=== PATIENT | female | born 1995 | race Caucasian/White ===

== ENCOUNTER 2018-06-26 21:48 | Emergency (ER) | payer SELFPAY ==
[2018-06-26] MEDS ORDERED: ONDANSETRON HCL INJ/PF 4 MG/2 ML SDV IV ONE (23:58)
--- NOTE | 2018-06-27 | ER Document Report ---
ED Medical Screen (RME) - General Chief Complaint: Abdominal Pain Stated Complaint: ABDOMINAL PAIN Time Seen by Provider: 06/26/18 23:57 Notes: Patient is a 22-year-old female presents to the emergency department complaining of general epigastric and left upper quadrant pain for the last 3 days. Patient states she is extremely nauseated and has vomited x2. Patient denies any diarrhea. Patient states her last bowel movement was today and it was very hard. Patient states after that bowel movement she did note bright red blood in the toilet and has had anus pain. Patient states last menstrual period was May 18 Past medical history: None Medications: None Allergies: Penicillin, latex GENERAL: Alert, interacts well. No acute distress. ABDOMEN: Soft, generalized epigastric and left upper quadrant pain. Non- distended. Bowel sounds present in all 4 quadrants. No McBurney's point tenderness, no Salgado sign noted. I have greeted and performed a rapid initial assessment of this patient. A comprehensive ED assessment and evaluation of the patient, analysis of test results and completion of the medical decision making process will be conducted by additional ED providers. TRAVEL OUTSIDE OF THE [place] IN LAST 30 DAYS: No - Related Data Allergies/Adverse Reactions: latex Allergy (Verified 06/26/18 21:50) Penicillins Allergy (Verified 06/26/18 21:50) Physical Exam - Vital signs Vitals: Temp Pulse Resp BP Pulse Ox 97.5 F 77 16 122/76 99 06/26/18 22:22 06/26/18 22:22 06/26/18 22:22 06/26/18 22:22 06/26/18 22:22 Course - Vital Signs Vital signs: Temp Pulse Resp BP Pulse Ox 97.5 F 77 16 122/76 99 06/26/18 22:22 06/26/18 22:22 06/26/18 22:22 06/26/18 22:22 06/26/18 22:22
[2018-06-27 00:30] LABS: ABSOLUTE BASOPHILS # (AUTO) 0.1 10^3/uL (0.0-0.2); ABSOLUTE EOSINOPHILS # (AUTO) 0.3 10^3/uL (0.0-0.6); ABSOLUTE LYMPHOCYTES (AUTO) 4.5 10^3/uL (0.5-4.7); ABSOLUTE MONOCYTES (AUTO) 0.8 10^3/uL (0.1-1.4); ABSOLUTE NEUT (AUTO) 8.8 10^3/uL (1.7-8.2); BASOPHILS % (AUTO) 0.7 % (0-2); EOSINOPHILS % (AUTO) 2.2 % (0-6); HEMATOCRIT 44.5 % (36.0-47.0); HEMOGLOBIN 14.9 g/dL (12.0-15.5); LYMPHOCYTES % (AUTO) 30.9 % (13-45); MEAN CORPUSCULAR HEMOGLOBIN 27.8 pg (27.0-33.4); MEAN CORPUSCULAR HGB CONC 33.5 g/dL (32.0-36.0); MEAN CORPUSCULAR VOLUME 83 fl (80-97); MONOCYTES % (AUTO) 5.3 % (3-13); PLATELET COUNT 325 10^3/uL (150-450); RED BLOOD COUNT 5.37 10^6/uL (3.72-5.28); RED CELL DISTRIBUTION WIDTH 14.1 % (11.5-14.0); SEGMENTED NEUTROPHILS % (AUTO) 60.9 % (42-78); TOTAL CELLS COUNTED % (AUTO) 100 %; WHITE BLOOD COUNT 14.5 10^3/uL (4.0-10.5)
[2018-06-27 00:47] LABS: ALANINE AMINOTRANSFERASE 22 U/L (9-52); ALBUMIN 4.4 g/dL (3.5-5.0); ALKALINE PHOSPHATASE 61 U/L (38-126); ANION GAP 7 (5-19); ASPARTATE AMINO TRANSFERASE 34 U/L (14-36); BILIRUBIN,DIRECT 0.2 mg/dL (0.0-0.4); BILIRUBIN,TOTAL 0.2 mg/dL (0.2-1.3); BLOOD UREA NITROGEN 10 mg/dL (7-20); CALCIUM 9.3 mg/dL (8.4-10.2); CARBON DIOXIDE 26 mmol/L (22-30); CHLORIDE 106 mmol/L (98-107); GLUCOSE 99 mg/dL (75-110); LIPASE 112.2 U/L (23-300); POTASSIUM 3.5 mmol/L (3.6-5.0); TOTAL PROTEIN 7.2 g/dL (6.3-8.2)
[2018-06-27 01:57] LABS: APPEARANCE,URINE SLIGHTLY-CLOUDY; BILIRUBIN,URINE NEGATIVE (NEGATIVE); COLOR,URINE YELLOW; GLUCOSE, URINE NEGATIVE (NEGATIVE); KETONES,URINE NEGATIVE (NEGATIVE); LEUKOCYTE ESTERASE,URINE TRACE (NEGATIVE); NITRITE,URINE NEGATIVE (NEGATIVE); PROTEIN,URINE NEGATIVE (NEGATIVE); URINE SPECIFIC GRAVITY 1.025
[2018-06-27] MEDS ORDERED: METOCLOPRAMIDE HCL ORAL SOLN 10 MG/10 ML UDCUP PO ONE (01:59)
[2018-06-27] MEDS ORDERED: FAMOTIDINE 20 MG TABLET PO ONE (01:59)
[2018-06-27] MEDS ORDERED: LIDOCAINE 2% VISCOUS SOLN 20 ML UDCUP PO ONE (01:59)
[2018-06-27] MEDS ORDERED: MAG HYDROX/AL HYDROX/SIMETH SUSP 30 ML UDCUP PO ONE (01:59)
[2018-06-27] MEDS ORDERED: SUCRALFATE 1 GM TABLET PO ONE (01:59)
--- NOTE | 2018-06-27 02:01 | ER Document Report ---
ED General - General Chief Complaint: Abdominal Pain Stated Complaint: ABDOMINAL PAIN Time Seen by Provider: 06/26/18 23:57 Notes: Patient is a 22-year-old female without chronic medical problems, prior surgical history of a cholecystectomy 7 years ago who presents with complaints of 3 days of epigastric abdominal pain intermittently radiating into her left chest. Patient describes her abdominal pain as being aching, throbbing, constant pain to the upper abdomen. States the pain worsens this pain. States that the pain became much more severe tonight after eating spaghetti with red sauce. She has had 2 episodes of vomiting and remains nauseous. Has not trying to improve her symptoms. No history of similar symptoms in the past. Patient also reports that she has been straining to have bowel movements, passes only firm stools marco t are nonbloody but that she has blood when wiping. She has not seen her general physician regarding today's concerns. TRAVEL OUTSIDE OF THE [place] IN LAST 30 DAYS: No - Related Data Allergies/Adverse Reactions: latex Allergy (Verified 06/26/18 21:50) Penicillins Allergy (Verified 06/26/18 21:50) Past Medical History - General Information source: Patient - Social History Smoking Status: Current Every Day Smoker Chew tobacco use (# tins/day): No Frequency of alcohol use: Occasional Drug Abuse: None Lives with: Friend Family History: Reviewed & Not Pertinent Patient has suicidal ideation: No Patient has homicidal ideation: No Renal/ Medical History: Denies: Hx Peritoneal Dialysis Review of Systems - Review of Systems Notes: Constitutional: Negative for fever. HENT: Negative for sore throat. Eyes: Negative for visual changes. Cardiovascular: Negative for chest pain. Respiratory: Negative for shortness of breath. Gastrointestinal: Positive for abdominal pain and vomiting. Genitourinary: Negative for dysuria. Musculoskeletal: Negative for back pain. Skin: Negative for rash. Neurological: Negative for headaches, weakness or numbness. 10 point ROS negative except as marked above and in HPI. Physical Exam - Vital signs Vitals: Temp Pulse Resp BP Pulse Ox 97.5 F 77 16 122/76 99 06/26/18 22:22 06/26/18 22:22 06/26/18 22:22 06/26/18 22:22 06/26/18 22:22 Interpretation: Normal Notes: PHYSICAL EXAMINATION: GENERAL: Well-appearing, well-nourished and in no acute distress. HEAD: Atraumatic, normocephalic. EYES: Pupils equal round and reactive to light, extraocular movements intact, sclera anicteric, conjunctiva are normal. ENT: nares patent, oropharynx clear without exudates. Moderately dry mucous membranes. NECK: Normal range of motion, supple without lymphadenopathy LUNGS: Breath sounds clear to auscultation bilaterally and equal. No wheezes rales or rhonchi. HEART: Regular rate and rhythm without murmurs ABDOMEN: Soft, epigastric abdominal pain on palpation but no other areas of localized abdominal tenderness, normoactive bowel sounds. No guarding, no rebound. No masses appreciated. EXTREMITIES: Normal range of motion, no pitting or edema. No cyanosis. NEUROLOGICAL: No focal neurological deficits. Moves all extremities spontaneously and on command. PSYCH: Normal mood, normal affect. SKIN: Warm, Dry, normal turgor, no rashes or lesions noted. Course - Re-evaluation Re-evalutation: 06/27/18 02:00 Patient presents with epigastric abdominal pain with associated reflux symptoms most consistent with likely gastritis. Patient has no focal abdominal tenderness on examination. Patient is status post cholecystectomy 7 years ago removing biliary pathology from differential. Lipase is normal. No LFT changes. Based on history and exam, I do not suspect ACS, pulmonary embolus, SBO, mesenteric ischemia, acute pancreatitis, biliary pathology, or an abdominal aortic dissection. Patient has had improvement of symptoms here with a GI cocktail. In regards to the patient report of rectal bleeding: Does report that she has been straining heavily to have bowel movements, having very constipated bowel movements and this is likely hemorrhoidal in origin. Hemoglobin within normal limits. 2 view abdomen without any acute findings. At this time will discharge with return precautions and follow-up recommendations. Verbal discharge instructions given a the bedside and opportunity for questions given. Medication warnings reviewed. Patient is in agreement with this plan and has verbalized understanding of return precautions and the need for primary care follow-up in the next 24-72 hours. - Vital Signs Vital signs: Temp Pulse Resp BP Pulse Ox 97.8 F 59 L 18 115/64 100 06/27/18 03:12 06/27/18 03:12 06/27/18 03:12 06/27/18 03:12 06/27/18 03:12 - Laboratory Result Diagrams: 06/27/18 00:19 06/27/18 00:19 Laboratory results interpreted by me: 06/27/18 06/27/18 06/27/18 00: 00:19 01:29 WBC 14.5 H RBC 5.37 H RDW 14.1 H Absolute Neutrophils 8.8 H Potassium 3.5 L Urine Urobilinogen 2.0 H Ur Leukocyte Esterase TRACE H - Diagnostic Test Radiology reviewed: Image reviewed, Reports reviewed Radiology results interpreted by me: 06/27/18 03:31 2 view abdomen: No significant colonic stool burden, no evidence of free air or obstruction - EKG Interpretation by Me Additional EKG results interpreted by me: 06/27/18 03:31 Sinus rhythm, rate 59. No ST elevations or depressions. QTC 444. Discharge - Discharge Clinical Impression: Epigastric abdominal pain, Gastritis/duodenitis Nausea and vomiting Qualifiers: Vomiting type: unspecified Vomiting Intractability: non-intractable Qualified Code(s): R11.2 - Nausea with vomiting, unspecified Condition: Good Disposition: HOME, SELF-CARE Additional Instructions: Your symptoms appear to be most consistent with stomach or upper intestinal irritation. Please begin taking famotidine 40 mg in the morning and 40 mg at night. Please take Carafate before meals. You may also take medicine such as Pepto-Bismol or Tums to assist with your pain. Please return to emergency department immediately if you have worsening of your pain, shortness of breath, vomiting, become unable to exert yourself due to pain or difficulty breathing, you pass out, or have any pain that radiates into your arms, jaw, or back. Please also return if you have any additional symptoms that are concerning to you. As we have discussed, the most important thing is lifestyle changes. You need to avoid smoking, sodas, tea, coffee, alcohol, spicy foods, and acidic foods such as citrus fruits, tomato based products, berries, and most fruit juices. Prescriptions: Famotidine 40 mg PO BID #60 tablet Sucralfate [Carafate 1 gm Tablet] 1 gm PO ACHS #120 tablet
--- NOTE | 2018-06-27 02:38 | RADIOLOGY REPORT (SQ) ---
EXAM DESCRIPTION: XR ABDOMEN 2 VIEWS SUPINE ERECT COMPLETED DATE/TME: 06/27/2018 01:26 CLINICAL HISTORY: 22 years Female, abdominal pain COMPARISON: None. NUMBER OF VIEWS/TECHNIQUE: 1 FINDINGS: Intestinal gas pattern is within normal limits. Paucity of bowel gas. No suspicious calcification. Grossly intact skeletal structures. Right upper abdominal clips. Pelvic clip. Mild scoliotic curvature. IMPRESSION: No acute findings.
[2018-06-27 03:12] VITALS: BP 115/64
--- NOTE | 2018-06-27 18:31 | EKG REPORT ---
SEVERITY:- NORMAL ECG - SINUS RHYTHM : Confirmed by: Ishmael Melissa 27-Jun-2018 18:30:40
== END 2018-06-27 03:13 | disposition home or self-care (01) ==
LOC: ER 21:48
DX: K29.70 Gastritis, unspecified, without bleeding (principal); R10.13 Epigastric pain; F17.200 Nicotine dependence, unspecified, uncomplicated; Z91.040 Latex allergy status; Z88.0 Allergy status to penicillin; Z90.49 Acquired absence of other specified parts of digestive tract
CPT/HCPCS: 93005; 96374; 99284; 36415; 83690; 85025; 81025; 80053; 81001; 74019; 93010; J3490; J2405

== ENCOUNTER 2018-10-01 22:14 | Emergency (ER) | payer SELFPAY ==
[2018-10-01 22:24] VITALS: BP 122/78
[2018-10-02] MEDS ORDERED: CYCLOBENZAPRINE HCL 10 MG TABLET PO ONE (01:24)
[2018-10-02] MEDS ORDERED: IBUPROFEN 800 MG TABLET PO ONE (01:24)
[2018-10-02] MEDS ORDERED: HYDROCODONE/ACETAMINOPHEN 5-325 MG (6 TAB/ER DISP) PO PRN (01:24)
--- NOTE | 2018-10-02 01:30 | ER Document Report ---
ED General - General Chief Complaint: Back Injury Stated Complaint: BACK PAIN Time Seen by Provider: 10/02/18 01:24 Mode of Arrival: Ambulatory Information source: Patient TRAVEL OUTSIDE OF THE [place] IN LAST 30 DAYS: No - HPI Notes: Patient is a 23-year-old white female presents emergency department with report that 30 hours ago she was moving some furniture and twisted and felt a pain to her left lower back. She continued to move furniture but the back pain progressed. She denies any numbness, paresthesia, incontinence. She reports no focal weakness down the legs. She denies any abdominal pain or dysuria or frequency or hematuria. Patient reports there is no concern for being and her menstrual cycle is on time. The patient denies any other musculoskeletal complaint or injury. No neck pain or upper back pain. - Related Data Allergies/Adverse Reactions: latex Allergy (Verified 06/26/18 21:50) Penicillins Allergy (Verified 06/26/18 21:50) Past Medical History - General Information source: Patient - Social History Smoking Status: Current Every Day Smoker Frequency of alcohol use: None Drug Abuse: None Lives with: Family Family History: Reviewed & Not Pertinent Renal/ Medical History: Denies: Hx Peritoneal Dialysis Review of Systems - Review of Systems -: Yes All other systems reviewed and negative Physical Exam - Vital signs Vitals: Temp Pulse Resp BP Pulse Ox 97.6 F 74 20 122/78 100 10/01/18 22:22 10/01/18 22:22 10/01/18 22:22 10/01/18 22:22 10/01/18 22:22 - Notes Notes: PHYSICAL EXAMINATION: GENERAL: Well-appearing, well-nourished and in no acute distress. HEAD: Atraumatic, normocephalic. EYES conjunctiva are normal. ENT Moist mucous membranes. NECK: Normal range of motion, supple without lymphadenopathy LUNGS: Breath sounds clear to auscultation bilaterally and equal. No wheezes rales or rhonchi. HEART: Regular rate and rhythm without murmurs ABDOMEN: Soft, nontender, nondistended abdomen. No guarding, no rebound. No masses appreciated. Female : deferred Musculoskeletal: Normal range of motion, no pitting or edema. No cyanosis. Pain appreciated paraspinal left lumbar region. No CVA tenderness. No crepitance or bony deformity or erythema. NEUROLOGICAL: Cranial nerves grossly intact. Normal speech, normal gait. Normal sensory, motor exams. Normal reflexes. No saddle anesthesia. PSYCH: Normal mood, normal affect. SKIN: Warm, Dry, normal turgor, no rashes or lesions noted. Course - Re-evaluation Re-evalutation: 10/02/18 01:28 No clinical suggestion for cauda equina syndrome or suggestion for fracture or acute neurologic compromise. - Vital Signs Vital signs: Temp Pulse Resp BP Pulse Ox 97.6 F 74 20 122/78 100 10/01/18 22:22 10/01/18 22:22 10/01/18 22:22 10/01/18 22:22 10/01/18 22:22 Discharge - Discharge Clinical Impression: Back strain Qualifiers: Encounter type: initial encounter Qualified Code(s): S39.012A - Strain of muscle, fascia and tendon of lower back, initial encounter Condition: Stable Disposition: HOME, SELF-CARE Instructions: Low Back Pain ([facility]) Additional Instructions: No heavy lifting. Prescriptions: Ibuprofen [Ibu] 800 mg PO Q8HP PRN #30 tablet PRN Reason: Cyclobenzaprine HCl [Flexeril 10 mg Tablet] 10 mg PO TIDP PRN #20 tab PRN Reason: Forms: Return to Work
== END 2018-10-02 02:14 | disposition home or self-care (01) ==
LOC: ER 22:14
DX: S39.012A Strain of muscle, fascia and tendon of lower back, initial encounter (principal); X50.1XXA Overexertion from prolonged static or awkward postures, initial encounter; Y93.89 Activity, other specified; Y99.0 Civilian activity done for income or pay; F17.200 Nicotine dependence, unspecified, uncomplicated; Z91.040 Latex allergy status; Z88.0 Allergy status to penicillin
CPT/HCPCS: 99283

== ENCOUNTER 2018-11-03 07:42 | Emergency (ER) | payer BC ==
[2018-11-03] MEDS ORDERED: DIPHENHYDRAMINE HCL 50 MG/ML VIAL IV ONE (08:56)
[2018-11-03] MEDS ORDERED: NORMAL SALINE 1000 ML 1,000 ML IV ONE (08:56)
[2018-11-03] MEDS ORDERED: KETOROLAC TROMETHAMINE INJ/PF 30 MG/1 ML SDV IV ONE (08:56)
[2018-11-03] MEDS ORDERED: METOCLOPRAMIDE HCL INJ/PF 10 MG/2 ML SDV IV ONE (08:56)
[2018-11-03 09:40] LABS: ABSOLUTE EOSINOPHILS # (AUTO) 0.4 10^3/uL (0.0-0.6); ABSOLUTE LYMPHOCYTES (AUTO) 2.7 10^3/uL (0.5-4.7); ABSOLUTE MONOCYTES (AUTO) 0.4 10^3/uL (0.1-1.4); ABSOLUTE NEUT (AUTO) 5.7 10^3/uL (1.7-8.2); BASOPHILS % (AUTO) 0.4 % (0-2); EOSINOPHILS % (AUTO) 3.9 % (0-6); HEMATOCRIT 41.9 % (36.0-47.0); HEMOGLOBIN 13.8 g/dL (12.0-15.5); LYMPHOCYTES % (AUTO) 29.5 % (13-45); MEAN CORPUSCULAR HEMOGLOBIN 27.8 pg (27.0-33.4); MEAN CORPUSCULAR VOLUME 84 fl (80-97); MONOCYTES % (AUTO) 4.2 % (3-13); PLATELET COUNT 287 10^3/uL (150-450); RED BLOOD COUNT 4.98 10^6/uL (3.72-5.28); RED CELL DISTRIBUTION WIDTH 14.6 % (11.5-14.0); TOTAL CELLS COUNTED % (AUTO) 100 %; WHITE BLOOD COUNT 9.1 10^3/uL (4.0-10.5)
[2018-11-03 10:14] LABS: ALANINE AMINOTRANSFERASE 27 U/L (9-52); ALBUMIN 3.7 g/dL (3.5-5.0); ALKALINE PHOSPHATASE 57 U/L (38-126); ANION GAP 8 (5-19); ASPARTATE AMINO TRANSFERASE 15 U/L (14-36); BILIRUBIN,DIRECT 0.2 mg/dL (0.0-0.4); BILIRUBIN,TOTAL 0.3 mg/dL (0.2-1.3); BLOOD UREA NITROGEN 10 mg/dL (7-20); CALCIUM 9.2 mg/dL (8.4-10.2); CARBON DIOXIDE 26 mmol/L (22-30); CHLORIDE 107 mmol/L (98-107); GLUCOSE 88 mg/dL (75-110); POTASSIUM 4.7 mmol/L (3.6-5.0); SODIUM 141.4 mmol/L (137-145); TOTAL PROTEIN 6.6 g/dL (6.3-8.2)
[2018-11-03 10:16] LABS: APPEARANCE,URINE CLEAR; BILIRUBIN,URINE NEGATIVE (NEGATIVE); COLOR,URINE YELLOW; GLUCOSE, URINE NEGATIVE (NEGATIVE); KETONES,URINE NEGATIVE (NEGATIVE); LEUKOCYTE ESTERASE,URINE NEGATIVE (NEGATIVE); NITRITE,URINE NEGATIVE (NEGATIVE); PROTEIN,URINE NEGATIVE (NEGATIVE); URINE SPECIFIC GRAVITY 1.018; UROBILINOGEN,URINE NEGATIVE mg/dL (<2.0)
[2018-11-03] MEDS ORDERED: DEXAMETHASONE SOD PHOS INJ 10 MG/1 ML VIAL IV ONE (11:37)
[2018-11-03 12:06] VITALS: BP 130/80
--- NOTE | 2018-11-03 12:10 | ER Document Report ---
ED General - General Chief Complaint: Headache >24 hrs old Stated Complaint: HEADACHE Time Seen by Provider: 11/03/18 08:44 TRAVEL OUTSIDE OF THE [place] IN LAST 30 DAYS: No - HPI Notes: Patient is a 23-year-old female presents emergency department for evaluation of a headache. She states is been going on for 3 days. She was resting on the couch watching television when it started. It was gradual in onset. She states her whole head hurts. She has increased pain with bright lights and loud noises. Nothing seems to make it better. She has had 4 episodes of emesis in the last 24 hours. She states the last one was streaked with blood. No fever chills. No sore throat. No ear pain. No rashes. She denies any recent head injuries. Difficulty seeing, speaking, swallowing. - Related Data Allergies/Adverse Reactions: latex Allergy (Verified 11/03/18 07:46) Penicillins Allergy (Verified 11/03/18 07:46) Past Medical History - General Information source: Patient - Social History Smoking Status: Current Every Day Smoker Chew tobacco use (# tins/day): No Frequency of alcohol use: None Drug Abuse: None Family History: Reviewed & Not Pertinent Patient has suicidal ideation: No Patient has homicidal ideation: No Renal/ Medical History: Denies: Hx Peritoneal Dialysis Review of Systems - Review of Systems Constitutional: No symptoms reported EENT: No symptoms reported Cardiovascular: No symptoms reported Respiratory: No symptoms reported Gastrointestinal: No symptoms reported Genitourinary: No symptoms reported Musculoskeletal: No symptoms reported Skin: No symptoms reported Neurological/Psychological: See HPI Physical Exam - Vital signs Vitals: Temp Pulse Resp BP Pulse Ox 97.9 F 68 18 128/79 H 97 11/03/18 07:52 11/03/18 07:52 11/03/18 07:52 11/03/18 07:52 11/03/18 07:52 - Notes Notes: Vital signs reviewed, please refer to chart. Head is normocephalic, atraumatic. Pupils equal round, reactive to light. Oral mucosa is moist, pharynx is without erythema or exudate. Neck is supple without meningismus. Heart is regular rate and rhythm. Lungs are clear to auscultation bilaterally. Abdomen is soft, nontender, normoactive bowel sounds throughout. Extremities without cyanosis, clubbing. Posterior calves are nontender. Peripheral pulses are equal. Skin is warm and dry. Patient is awake, alert, oriented x3. Cranial nerves II - XII are grossly intact without focal neurological deficits. Strength is plus 5 out of 5 bilateral lower extremities. Sensation is intact. Reflexes symmetrical. Intact [id number], rapid altering movements, [id number]. Course - Re-evaluation Re-evalutation: 11/03/18 12:07 Patient presents emergency department for evaluation. She states her pain is a 10 out of 10, but she sitting there comfortably. She is sleeping intermittently throughout the course of her stay. Her pain did improve somewhat. Her pain was gradual in onset. She has no signs of meningitis. She has no neurological deficits. She is feeling somewhat improved. I will send her home with some Fioricet. She is to follow-up with primary care, return to the emergency department with worsening or new concerning symptoms. - Vital Signs Vital signs: Temp Pulse Resp BP Pulse Ox 97.9 F 68 15 128/81 H 100 11/03/18 07:52 11/03/18 07:52 11/03/18 11:01 11/03/18 11:01 11/03/18 11:01 - Laboratory Result Diagrams: 11/03/18 09:15 11/03/18 09:15 Laboratory results interpreted by me: 11/03/18 11/03/18 08:50 09:15 RDW 14.6 H Urine Blood SMALL H Discharge - Discharge Clinical Impression: Headache Condition: Stable Disposition: HOME, SELF-CARE Instructions: Headache ([facility]) Additional Instructions: Take medication as prescribed. Rest. Follow-up with your primary care physician this week. Return to the emergency department with worsening or concerning symptoms. Referrals: JOSE EDUARDO MOODY MD [ACTIVE STAFF] - Follow up as needed
== END 2018-11-03 12:52 | disposition home or self-care (01) ==
LOC: ER 07:42
DX: R51 Headache (principal); F17.200 Nicotine dependence, unspecified, uncomplicated; Z91.040 Latex allergy status; Z88.0 Allergy status to penicillin
CPT/HCPCS: 99284; 96361; 96374; 96375; 36415; 85025; 81025; 80053; 81001; J1200; J1885; J2765; J7030; J1100

== ENCOUNTER 2018-11-14 14:31 | Emergency (ER) | payer BC ==
[2018-11-14 14:42] VITALS: BP 131/79
[2018-11-14] MEDS ORDERED: NORMAL SALINE 1000 ML 1,000 ML IV ONE (15:07)
[2018-11-14] MEDS ORDERED: METOCLOPRAMIDE HCL INJ/PF 10 MG/2 ML SDV IV ONE (15:07)
[2018-11-14] MEDS ORDERED: KETOROLAC TROMETHAMINE INJ/PF 30 MG/1 ML SDV IV ONE (15:07)
[2018-11-14] MEDS ORDERED: DIPHENHYDRAMINE HCL 50 MG/ML VIAL IV ONE (15:07)
--- NOTE | 2018-11-14 15:11 | ER Document Report ---
ED Medical Screen (RME) - General Chief Complaint: Headache Stated Complaint: MIGRAINE Time Seen by Provider: 11/14/18 15:04 Notes: Patient is a 23-year-old female presents to the emergency department for generalized frontal headache. States it was gradual in onset despite treatments at home has not been resolved. Patient states she was at this facility a few weeks ago for same. States she was treated as a migraine headache and told to ban toro-up with neurology. States she has not followed up with neurology. States this headache feels similar to the headache she had a couple weeks ago. Patient also complaining of photophobia and nausea. Patient's denying any injury, fever, nuchal rigidity. GENERAL: Alert, interacts well. NECK: Full range of motion. Supple. Trachea midline. No nuchal rigidity noted I have greeted and performed a rapid initial assessment of this patient. A comprehensive ED assessment and evaluation of the patient, analysis of test results and completion of the medical decision making process will be conducted by additional ED providers. This medical record was dictated with voice recognizing software. There may be grammatical, syntax errors that are unintended. TRAVEL OUTSIDE OF THE [place] IN LAST 30 DAYS: No - Related Data Allergies/Adverse Reactions: latex Allergy (Verified 11/14/18 14:31) Penicillins Allergy (Verified 11/14/18 14:31) Past Medical History - Social History Chew tobacco use (# tins/day): No Frequency of alcohol use: Occasional Drug Abuse: Marijuana Renal/ Medical History: Denies: Hx Peritoneal Dialysis Past Surgical History: Reports: Hx Cholecystectomy Physical Exam - Vital signs Vitals: Temp Pulse Resp BP Pulse Ox 98.2 F 74 14 131/79 H 98 11/14/18 14:40 11/14/18 14:40 11/14/18 14:40 11/14/18 14:40 11/14/18 14:40 Course - Vital Signs Vital signs: Temp Pulse Resp BP Pulse Ox 98.2 F 74 14 131/79 H 98 11/14/18 14:40 11/14/18 14:40 11/14/18 14:40 11/14/18 14:40 11/14/18 14:40
[2018-11-14 17:11] LABS: ANION GAP 9 (5-19); BLOOD UREA NITROGEN 13 mg/dL (7-20); CALCIUM 9.9 mg/dL (8.4-10.2); CARBON DIOXIDE 26 mmol/L (22-30); CHLORIDE 105 mmol/L (98-107); GLUCOSE 73 mg/dL (75-110); POTASSIUM 4.4 mmol/L (3.6-5.0); SODIUM 140.3 mmol/L (137-145)
[2018-11-14 18:03] LABS: ABSOLUTE BASOPHILS # (AUTO) 0.1 10^3/uL (0.0-0.2); ABSOLUTE EOSINOPHILS # (AUTO) 0.4 10^3/uL (0.0-0.6); ABSOLUTE LYMPHOCYTES (AUTO) 3.3 10^3/uL (0.5-4.7); ABSOLUTE MONOCYTES (AUTO) 0.7 10^3/uL (0.1-1.4); ABSOLUTE NEUT (AUTO) 5.1 10^3/uL (1.7-8.2); BASOPHILS % (AUTO) 0.7 % (0-2); EOSINOPHILS % (AUTO) 4.3 % (0-6); HEMATOCRIT 39.2 % (36.0-47.0); HEMOGLOBIN 13.1 g/dL (12.0-15.5); LYMPHOCYTES % (AUTO) 34.5 % (13-45); MEAN CORPUSCULAR HEMOGLOBIN 28.2 pg (27.0-33.4); MEAN CORPUSCULAR HGB CONC 33.4 g/dL (32.0-36.0); MEAN CORPUSCULAR VOLUME 84 fl (80-97); MONOCYTES % (AUTO) 6.9 % (3-13); PLATELET COUNT 244 10^3/uL (150-450); RED BLOOD COUNT 4.64 10^6/uL (3.72-5.28); RED CELL DISTRIBUTION WIDTH 14.2 % (11.5-14.0); SEGMENTED NEUTROPHILS % (AUTO) 53.6 % (42-78); TOTAL CELLS COUNTED % (AUTO) 100 %; WHITE BLOOD COUNT 9.5 10^3/uL (4.0-10.5)
[2018-11-14] MEDS ORDERED: HALOPERIDOL LACTATE INJ 5 MG/1 ML VIAL IV ONE (18:26)
--- NOTE | 2018-11-14 18:31 | ER Document Report ---
ED General - General Chief Complaint: Headache Stated Complaint: MIGRAINE Time Seen by Provider: 11/14/18 15:04 Notes: Patient is a 23-year-old female without chronic medical problems who presents with concerns of 2 weeks of continuous frontal headache. The patient was seen in the emergency department 2 weeks ago for the same, states that she was administered a migraine cocktail that did provide some relief but her headache has continued. She states that she generally wakes up with his headache. It is described as a constant, throbbing, dull headache to the bifrontal and temporal regions. She states that it is worsened by lights and sounds as well as activity. She has been taking ibuprofen and Tylenol regularly with minimal relief of the headache. She has had some mild nausea but no vomiting. Denies any confusion, focal weakness, numbness or difficulty ambulating. States that prior to the past several weeks she does not have a history of regular headaches although has had similar headaches on and off in the past. She does note that she works 7 days a week, is frequently on-call and is not sleeping very much. TRAVEL OUTSIDE OF THE [place] IN LAST 30 DAYS: No - Related Data Allergies/Adverse Reactions: latex Allergy (Verified 11/14/18 14:31) Penicillins Allergy (Verified 11/14/18 14:31) Past Medical History - General Information source: Patient - Social History Smoking Status: Current Every Day Smoker Chew tobacco use (# tins/day): No Frequency of alcohol use: Occasional Drug Abuse: Marijuana Family History: Reviewed & Not Pertinent Patient has suicidal ideation: No Patient has homicidal ideation: No Renal/ Medical History: Denies: Hx Peritoneal Dialysis Past Surgical History: Reports: Hx Cholecystectomy Review of Systems - Review of Systems Notes: Constitutional: Negative for fever. HENT: Negative for sore throat. Eyes: Negative for visual changes. Cardiovascular: Negative for chest pain. Respiratory: Negative for shortness of breath. Gastrointestinal: Negative for abdominal pain, vomiting or diarrhea. Genitourinary: Negative for dysuria. Musculoskeletal: Negative for back pain. Skin: Negative for rash. Neurological: Positive for headaches 10 point ROS negative except as marked above and in HPI. Physical Exam - Vital signs Vitals: Temp Pulse Resp BP Pulse Ox 98.2 F 74 14 131/79 H 98 11/14/18 14:40 11/14/18 14:40 11/14/18 14:40 11/14/18 14:40 11/14/18 14:40 Interpretation: Normal Notes: PHYSICAL EXAMINATION: GENERAL: Appears uncomfortable but in no overt distress HEAD: Atraumatic, normocephalic. EYES: Pupils equal round and reactive to light, extraocular movements intact, sclera anicteric, conjunctiva are normal. ENT: nares patent, oropharynx clear without exudates. Moist mucous membranes. NECK: Normal range of motion, supple without lymphadenopathy LUNGS: Breath sounds clear to auscultation bilaterally and equal. No wheezes rales or rhonchi. HEART: Regular rate and rhythm without murmurs ABDOMEN: Soft, nontender, normoactive bowel sounds. No guarding, no rebound. No masses appreciated. EXTREMITIES: Normal range of motion, no pitting or edema. No cyanosis. NEUROLOGICAL: Face symmetric. Tongue protrudes midline. Extraocular motions intact. Pupils are 2 mm and equally reactive. Normal speech, normal gait. 5 out of 5 strength in both the distal and proximal upper and lower extremities bilaterally. Sensation is grossly intact throughout. Finger to nose testing normal. Pronator drift normal. PSYCH: Normal mood, normal affect. SKIN: Warm, Dry, normal turgor, no rashes or lesions noted. Course - Re-evaluation Re-evalutation: 11/14/18 18:27 Presentation of a headache that appears to be most consistent with tension versus migrainous type headache. Headache was not maximal in onset, patient has no focal neurologic deficits, no nuchal rigidity, vital signs within normal limits, no papilledema, and patient is overall well in appearance. Based on clinical history and examination I do not suspect an acute subarachnoid hemorrhage, dural venous sinus thrombosis, acute meningitis. However, the patient reports that her headache has been effectively continuous for the past 2 weeks and that she does wake up with this headache. She also has not had any relief with the initial appropriate migraine cocktail that was administered by the physician recreation assistant in triage. I am concerned about the possibility of an intracranial mass with her history particular given that she does not have a [facility] history of headaches prior to the past several weeks. Will obtain CT of the head with contrast for further clarification although again I think this is an overall low probability at this point. Will also provide IV haloperidol as a rescue agent as patient has not had relief with initial agents. 06/08/19 19:39 CT head with and without contrast normal without evidence of masses. After haloperidol patient's pain has improved. Neurologic exam remains normal. At this time will discharge with return precautions and follow-up recommendations. Verbal discharge instructions given a the bedside and opportunity for questions given. Medication warnings reviewed. Patient is in agreement with this plan and has verbalized understanding of return precautions and the need for primary care follow-up in the next 24-72 hours. - Vital Signs Vital signs: Temp Pulse Resp BP Pulse Ox 98.2 F 74 14 131/79 H 98 11/14/18 14:40 11/14/18 14:40 11/14/18 14:40 11/14/18 14:40 11/14/18 14:40 - Laboratory Result Diagrams: 11/14/18 17:58 11/14/18 16:07 Laboratory results interpreted by me: 11/14/18 11/14/18 16:07 17:58 RDW 14.2 H Glucose 73 L - Diagnostic Test Radiology reviewed: Image reviewed, Reports reviewed Radiology results interpreted by me: 11/14/18 19:39 CT head: No acute intracranial bleed or mass Discharge - Discharge Clinical Impression: Recurrent headache, Photophobia Condition: Good Disposition: HOME, SELF-CARE Additional Instructions: You have been seen in the Emergency Department (ED) for a headache. Getting more sleep and reducing the amount of [id number] pain medication such as Tylenol and ibuprofen can help reduce the frequency of her headaches. The CT scan today does not demonstrate any evidence of brain masses. As we have discussed, please follow up with your primary care doctor as soon as possible regarding today's ED visit and your headache symptoms. Call your doctor or return to the ED if you have a worsening headache, sudden and severe headache, confusion, slurred speech, facial droop, weakness or numbness in any arm or leg, extreme fatigue, or other symptoms that concern you.
--- NOTE | 2018-11-14 19:35 | RADIOLOGY REPORT (SQ) ---
EXAM DESCRIPTION: CT HEAD COMBO COMPLETED DATE/TIME: 11/14/2018 7:20 pm REASON FOR STUDY: morning headaches, eval mass COMPARISON: None. TECHNIQUE: Axial images acquired through the brain without and with intravenous contrast. Images re viewed with bone, brain and subdural windows. Images stored on PACS. All CT scanners at this facility use dose modulation, iterative reconstruction, and/or weight based d osing when appropriate to reduce radiation dose to as low as reasonably achievable (ALARA). [facility]: Dose Right [facility]: CareDose [facility]: Dose Right [facility]: Teradose 4D [facility]: Host Committee CONTRAST TYPE AND DOSE: contrast/concentration: Isovue 350.00 mg/ml; Total Contrast Delivered: 50.0 ml; Total Saline Delivered: 50.0 ml RENAL FUNCTION: None required. The patient is less than 50 years old. RADIATION DOSE: CT Rad equipment meets quality standard of care and radiation dose reduction techniq ues were employed. CTDIvol: 53.2 mGy. DLP: 1928 mGy-cm.. LIMITATIONS: None. FINDINGS: VENTRICLES: Normal size and contour. CEREBRUM: No masses. No hemorrhage. No midline shift. Normal greene/white matter differentiation. No ev idence for acute infarction. No enhancing lesions. CEREBELLUM: No masses. No hemorrhage. No alteration of density. No evidence for acute infarction. No enhancing lesions. EXTRA-AXIAL SPACES: No fluid collections. No enhancing lesions. ORBITS AND GLOBE: No intra- or extraconal masses. Normal contour of globe without masses. CALVARIUM: No fracture. PARANASAL SINUSES: No fluid or mucosal thickening. SOFT TISSUES: No mass or hematoma. OTHER: No other significant finding. IMPRESSION: NORMAL BRAIN CT WITHOUT AND WITH CONTRAST. EVIDENCE OF ACUTE STROKE: NO. TECHNICAL DOCUMENTATION: JOB ID: [id number] [place]-72 Quality ID # [id number]: Final reports with documentation of one or more dose reduction techniques (e.g., Au tomated exposure control, adjustment of the mA and/or kV according to patient size, use of iterative reconstruction technique) 2010 [employer]- All Rights Reserved Reading location - IP/workstation name: [email or web address]
== END 2018-11-14 19:50 | disposition home or self-care (01) ==
LOC: ER 14:31
DX: R51 Headache (principal); H53.149 Visual discomfort, unspecified; Z91.040 Latex allergy status; Z88.0 Allergy status to penicillin; F17.200 Nicotine dependence, unspecified, uncomplicated; Z90.49 Acquired absence of other specified parts of digestive tract
CPT/HCPCS: 99284; 96361; 96374; 96375; 36415; 85025; 81025; 80048; 70470; J1200; J1630; J1885; J2765; J7030

== ENCOUNTER 2018-12-07 07:04 | Emergency (ER) | payer BC ==
[2018-12-07 07:18] VITALS: BP 128/85
--- NOTE | 2018-12-07 09:11 | ER Document Report ---
HPI - HPI Time Seen by Provider: 12/07/18 08:25 Pain Level: 5 Notes: Patient presents to the emergency department with complaints of dental pain. Patient reports she had a dental extraction done approximately 5 days ago she reports she had tooth #32 extracted. She denies any fevers but reports increased pain since that time. Patient was placed on 100 mg tablets 3 times daily of clindamycin and she was also given hydrocodone. Patient reports she has not really been taking the hydrocodone as she wants to be cautious if taking that. She does report that she has been taking regular Tylenol as needed for pain. - EENT EENT: REPORTS: Sore Throat - REPRODUCTIVE Reproductive: DENIES: : Past Medical History - General Information source: Patient - Social History Smoking Status: Never Smoker Frequency of alcohol use: None Drug Abuse: None Family History: Reviewed & Not Pertinent Patient has suicidal ideation: No Patient has homicidal ideation: No - Medical History Medical History: Negative Renal/ Medical History: Denies: Hx Peritoneal Dialysis Past Surgical History: Reports: Hx Cholecystectomy - Immunizations Immunizations up to date: Yes Vertical Provider Document - CONSTITUTIONAL Notes: PHYSICAL EXAMINATION: GENERAL: Well-appearing, well-nourished and in no acute distress. HEAD: Atraumatic, normocephalic. No facial swelling noted. EYES: Pupils equal round extraocular movements intact, conjunctiva are normal. ENT: Nares patent, oropharynx clear without any exudates, uvula midline. Erythema surrounding location of extraction at tooth #32 as well as tooth #31 and 30, no drainable abscess identified. NECK: Normal range of motion LUNGS: No respiratory distress Musculoskeletal: Normal range of motion NEUROLOGICAL: Normal speech, normal gait. PSYCH: Normal mood, normal affect. SKIN: Warm, Dry, normal turgor, no rashes or lesions noted. - INFECTION CONTROL TRAVEL OUTSIDE OF THE [place] IN LAST 30 DAYS: No Course - Re-evaluation Re-evalutation: After further discussion with the patient patient is also complaining of sore throat, a rapid strep was obtained and was negative. Patient does have quite a bit of surrounding erythema at the extraction site but no obvious drainable abscess. I did discuss with patient that it is possible she has dry socket but that unfortunately I am not a dentist. I did extend her course of clindamycin and bumped it up to 300 mg 3 times daily from 100 mg 3 times daily. I did encourage her to please take the hydrocodone as the dentist prescribed and also take ibuprofen 600 mg every 6 hours. I also explained to her the need for her to call her dentist to schedule a follow-up appointment for this potential postop complication. Patient verbalized understanding and agreement with this plan. - Vital Signs Vital signs: Temp Pulse Resp BP Pulse Ox 98.1 F 79 16 128/85 H 99 12/07/18 07:12/07/18 07:17 12/07/18 07:17 12/07/18 07:12/07/18 07:17 Discharge - Discharge Clinical Impression: Pain, dental Condition: Good Disposition: HOME, SELF-CARE Additional Instructions: Please call your dentist to schedule an appointment for them to look at the area of concern. Take antibiotics as prescribed. Continue to do salt water gargles. Take ibuprofen 600 mg every 6 hours, use the hydrocodone that was prescribed to you by your dentist. Return to the emergency department for any new or worsening symptoms to include development of fever. Prescriptions: Clindamycin HCl 300 mg PO TID #21 capsule Forms: Return to Work
== END 2018-12-07 09:20 | disposition home or self-care (01) ==
LOC: ER 07:04
DX: K08.9 Disorder of teeth and supporting structures, unspecified (principal); Z90.49 Acquired absence of other specified parts of digestive tract
CPT/HCPCS: 87070; 87880; 99283

== ENCOUNTER 2019-01-02 11:32 | Emergency (ER) | payer BC ==
[2019-01-02] MEDS ORDERED: ONDANSETRON HCL INJ/PF 4 MG/2 ML SDV IV ONE (12:01)
[2019-01-02] MEDS ORDERED: NORMAL SALINE 1000 ML 1,000 ML IV ONE ×2 (12:01→13:15)
--- NOTE | 2019-01-02 12:08 | ER Document Report ---
ED Medical Screen (RME) - General Chief Complaint: Nausea/Vomiting/Diarrhea Stated Complaint: VOMITING Time Seen by Provider: 01/02/19 11:53 Notes: Patient is a 23-year-old female who presents emergency department with a chief complaint of nausea, vomiting, and diarrhea. She has had her symptoms for the past 7 days. She also states that she has some abdominal pain that is in her mid upper abdomen. Attempted to drink chicken broth and eat some crackers with little relief. States she can't keep down water. Patient has a history of a cholecystectomy. Menstrual cycle was 26 days ago. Denies any vaginal discharge. Denies dysuria. Exam: Tender mid upper abdomen. Exam limited due to patient in sitting position. I have greeted and performed a rapid initial assessment of this patient. A comprehensive ED assessment and evaluation of the patient, analysis of test results and completion of medical decision making process will be conducted by an additional ED providers. TRAVEL OUTSIDE OF THE [place] IN LAST 30 DAYS: No - Related Data Allergies/Adverse Reactions: latex Allergy (Verified 01/02/19 11:33) Penicillins Allergy (Verified 01/02/19 11:33) Past Medical History - Social History Chew tobacco use (# tins/day): No Drug Abuse: None Renal/ Medical History: Denies: Hx Peritoneal Dialysis Past Surgical History: Reports: Hx Cholecystectomy - Immunizations Immunizations up to date: Yes Physical Exam - Vital signs Vitals: Temp Pulse Resp BP Pulse Ox 97.9 F 80 18 130/83 H 97 01/02/19 11:35 01/02/19 11:35 01/02/19 11:35 01/02/19 11:35 01/02/19 11:35 Course - Vital Signs Vital signs: Temp Pulse Resp BP Pulse Ox 97.9 F 80 18 130/83 H 97 01/02/19 11:35 01/02/19 11:35 01/02/19 11:35 01/02/19 11:35 01/02/19 11:35
[2019-01-02 12:43] LABS: ABSOLUTE BASOPHILS # (AUTO) 0.1 10^3/uL (0.0-0.2); ABSOLUTE EOSINOPHILS # (AUTO) 0.4 10^3/uL (0.0-0.6); ABSOLUTE LYMPHOCYTES (AUTO) 3.1 10^3/uL (0.5-4.7); ABSOLUTE MONOCYTES (AUTO) 0.5 10^3/uL (0.1-1.4); BASOPHILS % (AUTO) 0.8 % (0-2); EOSINOPHILS % (AUTO) 3.5 % (0-6); HEMATOCRIT 42.9 % (36.0-47.0); HEMOGLOBIN 14.4 g/dL (12.0-15.5); LYMPHOCYTES % (AUTO) 30.7 % (13-45); MEAN CORPUSCULAR HGB CONC 33.5 g/dL (32.0-36.0); MEAN CORPUSCULAR VOLUME 84 fl (80-97); PLATELET COUNT 315 10^3/uL (150-450); RED BLOOD COUNT 5.13 10^6/uL (3.72-5.28); RED CELL DISTRIBUTION WIDTH 14.8 % (11.5-14.0); TOTAL CELLS COUNTED % (AUTO) 100 %; WHITE BLOOD COUNT 10.1 10^3/uL (4.0-10.5)
[2019-01-02 12:59] LABS: ALANINE AMINOTRANSFERASE 25 U/L (9-52); ALBUMIN 4.4 g/dL (3.5-5.0); ALKALINE PHOSPHATASE 53 U/L (38-126); ANION GAP 12 (5-19); ASPARTATE AMINO TRANSFERASE 20 U/L (14-36); BILIRUBIN,DIRECT 0.2 mg/dL (0.0-0.4); BILIRUBIN,TOTAL 0.3 mg/dL (0.2-1.3); BLOOD UREA NITROGEN 18 mg/dL (7-20); CALCIUM 10.7 mg/dL (8.4-10.2); CARBON DIOXIDE 21 mmol/L (22-30); CHLORIDE 108 mmol/L (98-107); GLUCOSE 91 mg/dL (75-110); POTASSIUM 4.5 mmol/L (3.6-5.0); TOTAL PROTEIN 7.4 g/dL (6.3-8.2)
[2019-01-02 13:07] LABS: APPEARANCE,URINE CLEAR; BILIRUBIN,URINE NEGATIVE (NEGATIVE); COLOR,URINE STRAW; GLUCOSE, URINE NEGATIVE (NEGATIVE); KETONES,URINE NEGATIVE (NEGATIVE); LEUKOCYTE ESTERASE,URINE NEGATIVE (NEGATIVE); NITRITE,URINE NEGATIVE (NEGATIVE); PROTEIN,URINE NEGATIVE (NEGATIVE); URINE SPECIFIC GRAVITY 1.011; UROBILINOGEN,URINE NEGATIVE mg/dL (<2.0)
[2019-01-02] MEDS ORDERED: PROMETHAZINE HCL INJ 25 MG/1 ML VIAL IV ONE (13:10)
[2019-01-02] MEDS ORDERED: FAMOTIDINE INJ/PF 20 MG/2 ML SDV IV ONE (13:10)
[2019-01-02] MEDS ORDERED: DICYCLOMINE HCL 20 MG TABLET PO ONE (13:10)
--- NOTE | 2019-01-02 13:17 | ER Document Report ---
ED General - General Chief Complaint: Nausea/Vomiting/Diarrhea Stated Complaint: VOMITING Time Seen by Provider: 01/02/19 11:53 TRAVEL OUTSIDE OF THE [place] IN LAST 30 DAYS: No - HPI Notes: Patient is a 23-year-old female who presents to the emergency department for evaluation of abdominal pain, nausea, vomiting, diarrhea. Symptoms of been present for over a week. She states she has had 8 episodes of nonbloody, nonbilious emesis in the last 24 hours. She is had 5 episodes of nonbloody diarrhea. She states that about 2 weeks ago she finished a round of clindamycin for an ear infection as well as an infected tooth. She is crampy abdominal pain, the particularly is located in the epigastric region. She does have a history of ulcers, was concerned about it being problematic. She takes Pepcid d aily for it. She denies any fevers, has had some chills. No urinary symptoms. No vaginal discharge. - Related Data Allergies/Adverse Reactions: latex Allergy (Verified 01/02/19 11:33) Penicillins Allergy (Verified 01/02/19 11:33) Past Medical History - General Information source: Patient - Social History Smoking Status: Current Every Day Smoker Chew tobacco use (# tins/day): No Drug Abuse: None Family History: Reviewed & Not Pertinent Patient has suicidal ideation: No Patient has homicidal ideation: No Renal/ Medical History: Denies: Hx Peritoneal Dialysis GI Medical History: Reports: Hx Gastroesophageal Reflux Disease, Hx Ulcer Past Surgical History: Reports: Hx Cholecystectomy - Immunizations Immunizations up to date: Yes Review of Systems - Review of Systems Constitutional: See HPI EENT: No symptoms reported Cardiovascular: No symptoms reported Respiratory: No symptoms reported Gastrointestinal: See HPI Genitourinary: No symptoms reported Female Genitourinary: No symptoms reported Musculoskeletal: No symptoms reported Skin: No symptoms reported Neurological/Psychological: No symptoms reported Physical Exam - Vital signs Vitals: Temp Pulse Resp BP Pulse Ox 97.9 F 80 18 130/83 H 97 01/02/19 11:35 01/02/19 11:35 01/02/19 11:35 01/02/19 11:35 01/02/19 11:35 - Notes Notes: Vital signs reviewed, please refer to chart. Head is normocephalic, atraumatic. Pupils equal round, reactive to light. Neck is supple without meningismus. Heart is regular rate and rhythm. Lungs are clear to auscultation bilaterally. Abdomen is soft, mildly tender in the epigastric region without rebound or guarding, normoactive bowel sounds throughout. Extremities without cyanosis, clubbing. Posterior calves are nontender. Peripheral pulses are equal. Skin is warm and dry. Patient is awake, alert, neurological exam is nonfocal. Course - Re-evaluation Re-evalutation: 01/02/19 13:15 Patient presents emergency department for evaluation of abdominal pain, nausea, vomiting, diarrhea. She has normal vital signs. Laboratory investigations were ordered through triage. Patient's bicarb is mildly low, indicating mild dehydration. Urinalysis is still pending. My primary concern this patient is a possibility of C. difficile. She was treated with clindamycin just prior to onset of symptoms. She does not have a leukocytosis. I did order a stool sample. She states she was unsure of us to whether or not she would be able to provide one. I will give her an outpatient order. At this point I am leaning toward empiric treatment. She will be referred onto primary care on-call. She is strongly encouraged to establish care with a primary care physician. After initial treatment with fluids and Zofran, patient was still feeling very nauseated. Further medicated patient with Phenergan, Pepcid, Bentyl, fluids. We will continue to monitor for response. 01/02/19 13:46 Patient feeling somewhat improved. She has not been able to give a stool sample. I will go ahead and treat her empirically treated with Flagyl. She was told that she needs to avoid all alcohol while on this medication. She voiced understanding. I will send her home with Phenergan and Zofran as well. She is to follow-up with primary care, return to the ED with worsening or new concerning symptoms. - Vital Signs Vital signs: Temp Pulse Resp BP Pulse Ox 97.9 F 80 18 130/83 H 97 01/02/19 11:35 01/02/19 11:35 01/02/19 11:35 01/02/19 11:35 01/02/19 11:35 - Laboratory Result Diagrams: 01/02/19 12:18 01/02/19 12:18 Laboratory results interpreted by me: 01/02/19 01/02/1901/02/19 12:18 12:18 12:36 RDW 14.8 H Chloride 108 H Carbon Dioxide 21 L Calcium 10.7 H Urine Blood SMALL H Discharge - Discharge Clinical Impression: Nausea and vomiting Condition: Stable Disposition: HOME, SELF-CARE Instructions: Antinausea Medication ([facility]), Diarrhea, Nonspecific ([facility]), Vomiting ([facility]) Additional Instructions: Stay hydrated with small, frequent sips of fluids. Zofran as needed for mild nausea, Phenergan as needed for severe nausea. Please watch for drowsiness with this medication. You are being treated for the possibility of a C. difficile infection with Flagyl. Please do not drink any alcohol while taking this medication. If you are able to provide a stool sample, you have been given a lab slip, take this outpatient lab for further testing. If you develop worsening or new concerning symptoms of any sort, return immediately to the emergency department for reevaluation.
[2019-01-02 15:54] VITALS: BP 145/90
== END 2019-01-02 15:32 | disposition home or self-care (01) ==
LOC: ER 11:32
DX: R11.2 Nausea with vomiting, unspecified (principal); R19.7 Diarrhea, unspecified; K28.9 Gastrojejunal ulcer, unspecified as acute or chronic, without hemorrhage or perforation; Z79.899 Other long term (current) drug therapy; R10.13 Epigastric pain; R10.816 Epigastric abdominal tenderness; F17.200 Nicotine dependence, unspecified, uncomplicated; Z90.49 Acquired absence of other specified parts of digestive tract; Z91.040 Latex allergy status; Z88.0 Allergy status to penicillin
CPT/HCPCS: 99284; 96361; 96374; 96375; 36415; 83690; 84703; 85025; 80053; 81001; J3490; J2550; J2405; J7030; S0028

== ENCOUNTER 2019-03-02 15:27 | Emergency (ER) | payer BC ==
--- NOTE | 2019-03-02 16:31 | ER Document Report ---
ED Medical Screen (RME) - General Chief Complaint: Sore Throat Stated Complaint: SORE THROAT Time Seen by Provider: 03/02/19 16:28 Mode of Arrival: Ambulatory Information source: Patient Notes: Patient presents emergency department with complaint of sore throat since Friday. Reports it really started hurting last night. Denies fever vomiting diarrhea. Is unsure if she is been exposed to strep throat. Patient speaking a clear voice no distress I have greeted and performed a rapid initial assessment of this patient. A comprehensive ED assessment and evaluation of the patient, analysis of test results and completion of the medical decision making process will be conducted by additional ED providers. Dictation of this chart was performed using voice recognition software; therefore, there may be some unintended grammatical errors. TRAVEL OUTSIDE OF THE [place] IN LAST 30 DAYS: No - Related Data Allergies/Adverse Reactions: latex Allergy (Verified 03/02/19 16:28) Penicillins Allergy (Verified 03/02/19 16:28) Past Medical History Renal/ Medical History: Denies: Hx Peritoneal Dialysis GI Medical History: Reports: Hx Gastroesophageal Reflux Disease, Hx Ulcer Past Surgical History: Reports: Hx Cholecystectomy - Immunizations Immunizations up to date: Yes Physical Exam - Vital signs Vitals: Temp Pulse Resp BP Pulse Ox 98.9 F 88 16 127/81 H 98 03/02/19 15:41 03/02/19 15:41 03/02/19 15:41 03/02/19 15:41 03/02/19 15:41 Course - Vital Signs Vital signs: Temp Pulse Resp BP Pulse Ox 98.9 F 88 16 127/81 H 98 03/02/19 15:41 03/02/19 15:41 03/02/19 15:41 03/02/19 15:41 03/02/19 15:41
[2019-03-02] MEDS ORDERED: CLINDAMYCIN HCL 150 MG CAPSULE PO ONE (18:18)
[2019-03-02] MEDS ORDERED: DEXAMETHASONE SOD PHOS INJ 10 MG/1 ML VIAL IM ONE (18:19)
[2019-03-02] MEDS ORDERED: KETOROLAC TROMETHAMINE INJ/PF 30 MG/1 ML SDV IM ONE (18:19)
--- NOTE | 2019-03-02 18:24 | ER Document Report ---
HPI - HPI Patient complains to provider of: sore throat Time Seen by Provider: 03/02/19 16:28 Pain Level: 4 Context: Patient presents with a sore throat since Friday. Patient woke up in the middle the night with the sensation that she was having difficulty swallowing. Since then her pain is gotten worse and dysphasia has increased also having anterior neck pain, denies fevers but complains of chills, complains of bilateral ear pain, denies any neck stiffness, denies any dizziness or lightheadedness, denies any acute shortness of breath or chest pain, denies nausea/vomiting/diarrhea, denies urinary symptoms. - REPRODUCTIVE Reproductive: DENIES: : Past Medical History - General Information source: Patient - Social History Smoking Status: Current Every Day Smoker Chew tobacco use (# tins/day): No Frequency of alcohol use: None Drug Abuse: Marijuana Family History: Reviewed & Not Pertinent Patient has suicidal ideation: No Patient has homicidal ideation: No Renal/ Medical History: Denies: Hx Peritoneal Dialysis GI Medical History: Reports: Hx Gastroesophageal Reflux Disease, Hx Ulcer Past Surgical History: Reports: Hx Cholecystectomy - Immunizations Immunizations up to date: Yes Vertical Provider Document - CONSTITUTIONAL Notes: Reviewed vital signs and nursing note as charted by RN. CONSTITUTIONAL: Well-appearing, well-nourished HEAD: Normocephalic; atraumatic; No swelling EYES: PERRL; Conjunctivae clear, no drainage; EOMI ENT: External ears without lesions; External auditory canal is patent; TMs without erythema, landmarks clear and well visualized; no rhinorrhea; Pharynx with erythema and no exudate, 3+ lateral tonsillar hypertrophy, airway patent, mucous membranes pink and moist NECK: Supple, + cervical lymphadenopathy, no masses CARD: Regular rate and rhythm; no murmurs, no rubs, no gallops, capillary refill < 2 seconds, symmetric pulses RESP: Respiratory rate and effort are normal. There is normal chest excursion. No respiratory distress, no retractions, no stridor, no nasal flaring, no accessory muscle use. The lungs are clear to auscultation bilaterally, no wheezing, no rales, no rhonchi. ABD/GI: Normal bowel sounds; non-distended; soft, non-tender, no rebound, no guarding, no palpable organomegaly EXT: Normal ROM in all joints; non-tender to palpation; no effusions, no edema SKIN: Normal color for age and race; warm; dry; good turgor; no acute lesions noted NEURO: No facial asymmetry; Moves all extremities equally; Motor and sensory function intact - INFECTION CONTROL TRAVEL OUTSIDE OF THE [place] IN LAST 30 DAYS: No Course - Re-evaluation Re-evalutation: 03/02/19 18:22 Presentation of several days of sore throat in an otherwise well-appearing patient. Rapid strep is positive. History and exam are not consistent with a retropharyngeal abscess or peritonsillar abscess. Airway is patent. No difficulty handling oral secretions. Vitals within normal limits. Patient has a penicillin allergy so we will treat with clindamycin and give first dose here at this time will discharge with return precautions and follow-up recommendations. Verbal discharge instructions given a the bedside and opportunity for questions given. Medication warnings reviewed. Patient is in agreement with this plan and has verbalized understanding of return precautions and the need for primary care follow-up in the next 7 days. - Vital Signs Vital signs: Temp Pulse Resp BP Pulse Ox 98.9 F 88 16 127/81 H 98 03/02/19 15:41 03/02/19 15:41 03/02/19 15:41 03/02/19 15:41 03/02/19 15:41 Discharge - Discharge Clinical Impression: Strep pharyngitis, Sore throat Condition: Good Disposition: HOME, SELF-CARE Instructions: Sore Throat ([facility]), Strep Throat ([facility]) Additional Instructions: You have been diagnosed with strep throat based on a positive strep test. Because of your penicillin allergy we are treating with clindamycin you received your first dose here and you will be placed on a 7-day course you have also been given a dose of steroids and a dose of Toradol to help with your throat discomfort. Please continue to take ibuprofen 600 mg every 6 hours or Tylenol 1000 mg every 6 hours as needed for throat discomfort. You can also gargle with salt water. Continue to drink plenty of fluids. Follow-up with your primary care doctor in the next several days. Return if you become unable to swallow, have difficulty breathing, pass out, have persistent vomiting that prevents you from being able to tolerate fluids, or have any other symptoms that are concerning to you. Prescriptions: Clindamycin HCl 300 mg PO Q8H 7 Days #21 capsule Forms: Return to Work
[2019-03-02 18:39] VITALS: BP 130/82
== END 2019-03-02 18:52 | disposition home or self-care (01) ==
LOC: ER 15:27
DX: J02.0 Streptococcal pharyngitis (principal); R68.83 Chills (without fever); R59.0 Localized enlarged lymph nodes; H92.03 Otalgia, bilateral; M54.2 Cervicalgia; F17.200 Nicotine dependence, unspecified, uncomplicated; F12.10 Cannabis abuse, uncomplicated
CPT/HCPCS: 99283; 96374; 96375; 87880; J1885; J1100

== ENCOUNTER 2019-05-15 23:48 | Emergency (ER) | payer BC ==
[2019-05-16] MEDS ORDERED: CYCLOBENZAPRINE HCL 10 MG TABLET PO ONE (02:31)
[2019-05-16] MEDS ORDERED: KETOROLAC TROMETHAMINE 60 MG/2 ML SDV IM ONE (02:31)
[2019-05-16] MEDS ORDERED: ACETAMINOPHEN 325 MG TABLET PO ONE (02:31)
--- NOTE | 2019-05-16 03:06 | ER Document Report ---
ED Neck/Back Problem - General Chief Complaint: Back Pain Stated Complaint: BACK INJURY,LEG NUMBNESS Time Seen by Provider: 05/16/19 02:20 Information source: Patient Notes: Ms. Ribeiro is a 23 yo f w/ PMH of migraines presenting to the ED for back pain. Patient states her back pain began yesterday evening but she was able to tolerate it. She states today that she was been playing quite a bit with her 2-year-old 25 pound child lifting and moving around. Patient states she did housework throughout the day and was moving around quite a bit. She denies any falls or trauma. She denies any fever, difficulty ambulating, difficulty urinating or saddle paresthesias. Patient denies any other complaints at this point in time such as chest pain, abdominal pain, nausea vomiting or diarrhea. She states that pain is primarily located in her lumbar area and is worse on the left lower side versus the right however both are achy. TRAVEL OUTSIDE OF THE [place] IN LAST 30 DAYS: No - Related Data Allergies/Adverse Reactions: latex Allergy (Verified 03/02/19 16:28) Penicillins Allergy (Verified 03/02/19 16:28) Past Medical History - Social History Smoking Status: Current Every Day Smoker Frequency of alcohol use: Occasional Drug Abuse: Marijuana Family History: Reviewed & Not Pertinent Patient has suicidal ideation: No Patient has homicidal ideation: No Renal/ Medical History: Denies: Hx Peritoneal Dialysis GI Medical History: Reports: Hx Gastroesophageal Reflux Disease, Hx Ulcer Past Surgical History: Reports: Hx Cholecystectomy - Immunizations Immunizations up to date: Yes Review of Systems - Review of Systems Constitutional: See HPI EENT: No symptoms reported Cardiovascular: No symptoms reported Respiratory: No symptoms reported Gastrointestinal: No symptoms reported Genitourinary: No symptoms reported Female Genitourinary: No symptoms reported Musculoskeletal: See HPI Skin: No symptoms reported Hematologic/Lymphatic: No symptoms reported Neurological/Psychological: No symptoms reported Physical Exam - Vital signs Vitals: Temp Pulse Resp BP Pulse Ox 97.4 F 74 16 127/75 H 98 05/15/19 23:53 05/15/19 23:53 05/15/19 23:53 05/15/19 23:53 05/15/19 23:53 Interpretation: Normal - General General appearance: Appears well, Alert - HEENT Head: Normocephalic, Atraumatic Eyes: Normal Pupils: PERRL - Respiratory Respiratory status: No respiratory distress Chest status: Nontender Breath sounds: Normal Chest palpation: Normal - Cardiovascular Rhythm: Regular Heart sounds: Normal auscultation Murmur: No - Abdominal Inspection: Normal Distension: No distension Bowel sounds: Normal Tenderness: Nontender Organomegaly: No organomegaly - Back Back: Normal, Other - Left lumbar paraspinous area to palpation with increased muscular tone. Otherwise normal strength bilateral lower extremities. Some mild discomfort with lifting of the left leg. - Extremities General upper extremity: Normal inspection, Nontender, Normal color, Normal ROM, Normal temperature General lower extremity: Normal inspection, Nontender, Normal color, Normal ROM, Normal temperature, Normal weight bearing. No: Merlene's sign - Neurological Neuro grossly intact: Yes Cognition: Normal Orientation: AAOx4 [place] Coma Scale Eye Opening: Spontaneous [place] Coma Scale Verbal: Oriented [place] Coma Scale Motor: Obeys Commands [place] Coma Scale Total: 15 Speech: Normal Motor strength normal: LUE, RUE, LLE, RLE Sensory: Normal - Psychological Associated symptoms: Normal affect, Normal mood - Skin Skin Temperature: Warm Skin Moisture: Dry Skin Color: Normal Course - Re-evaluation Re-evalutation: Patient is generally well-appearing nontoxic. Initial vitals within normal limits. Differential diagnosis includes lumbar strain, sciatica, fracture (unlikely) She does endorse lifting her daughter who is 25 pounds and excessive play today with her. Physical examination consistent with muscular strain with increased muscular tone and tenderness over the left lumbar region. No red flag symptoms to suggest cord compression. Will administer Toradol, Flexeril and Tylenol for pain control. Patient recommended to apply heat to the area and perform slow range of motion exercises. 05/16/19 03:07 Patient reported to nursing staff that she starting to feel improved after being medicated with Flexeril, Toradol and Tylenol. Instructed to apply heat to the area and perform slow range of motion exercises. Also recommended that she avoid lifting her daughter and other heavy objects. Patient given prescription for Flexeril and recommended she use Motrin in addition to the Flexeril every 8 hours. Instructed to follow-up with a primary care doctor as needed. Given return precautions. - Vital Signs Vital signs: Temp Pulse Resp BP Pulse Ox 97.4 F 74 16 127/75 H 98 05/16/19 00:01 05/15/19 23:53 05/16/19 00:01 05/15/19 23:53 05/16/19 00:01 Discharge - Discharge Clinical Impression: Lumbar strain Qualifiers: Encounter type: initial encounter Qualified Code(s): S39.012A - Strain of muscle, fascia and tendon of lower back, initial encounter Back pain Qualifiers: Back pain location: low back pain Chronicity: acute Back pain laterality: left Sciatica presence: without sciatica Qualified Code(s): M54.5 - Low back pain Condition: Good Disposition: HOME, SELF-CARE Instructions: Low Back Pain ([facility]), Muscle Strain ([facility]) Additional Instructions: It is important that you apply heat over the lumbar back for at least 30 minutes 3-4 times a day. After taking your Flexeril as well as 800 mg of ibuprofen, make sure that you perform slow range of motion exercises once that he has been on there for 30 minutes. I would avoid lifting any heavy objects including your child. Follow-up with your primary care doctor as needed. Prescriptions: Cyclobenzaprine HCl [Flexeril 10 mg Tablet] 10 mg PO TIDP PRN #30 tab PRN Reason: For Back Pain
[2019-05-16 04:19] VITALS: BP 123/68
== END 2019-05-16 04:06 | disposition home or self-care (01) ==
LOC: ER 23:48
DX: S39.012A Strain of muscle, fascia and tendon of lower back, initial encounter (principal); M54.9 Dorsalgia, unspecified; R20.0 Anesthesia of skin; X50.0XXA Overexertion from strenuous movement or load, initial encounter; F17.200 Nicotine dependence, unspecified, uncomplicated
CPT/HCPCS: 96372; 99283; J1885

== ENCOUNTER 2019-07-21 06:39 | Emergency (ER) | payer SELFPAY ==
[2019-07-21 08:07] LABS: A TYPE INFLUENZA AG NEGATIVE (NEGATIVE); B INFLUENZA AG NEGATIVE (NEGATIVE)
--- NOTE | 2019-07-21 09:54 | ER Document Report ---
ED General - General Chief Complaint: Flu Symptoms Stated Complaint: FEVER,BODY ACHES,CHILLS,SORE THROAT Time Seen by Provider: 07/21/19 09:48 Primary Care Provider: [facility] [Outside] - Follow up in 1 week TRAVEL OUTSIDE OF THE [place] IN LAST 30 DAYS: No - HPI Notes: 23-year-old female to the emergency department with complaints of flu like symptoms of been ongoing since Friday (4 days). She states that she has had fever, cough, sore throat, nasal congestion, body aches, headache. She states she did not have a flu shot this season. She is unsure if she has had a positive sick contact. She states that she has been taking Tylenol to help with the body aches and fever. She states the highest that she seen her temperature is 101. She denies any urinary symptoms. She denies any chest pain or shortness of breath. She states that the cough is productive. She does have a history of asthma but she denies any wheezing. She does smoke. - Related Data Allergies/Adverse Reactions: latex Allergy (Verified 07/21/19 07:32) Penicillins Allergy (Verified 07/21/19 07:32) Past Medical History - General Information source: Patient - Social History Smoking Status: Current Every Day Smoker Frequency of alcohol use: None Drug Abuse: Marijuana Family History: Reviewed & Not Pertinent Patient has suicidal ideation: No Patient has homicidal ideation: No Renal/ Medical History: Denies: Hx Peritoneal Dialysis GI Medical History: Reports: Hx Gastroesophageal Reflux Disease, Hx Ulcer Past Surgical History: Reports: Hx Cholecystectomy - Immunizations Immunizations up to date: Yes Review of Systems - Review of Systems Constitutional: denies: Chills, Fever EENT: See HPI, Nose congestion, Throat pain. denies: Ear pain Cardiovascular: denies: Chest pain, Palpitations, Heart racing, Orthopnea, Dizziness, Lightheaded, Edema Respiratory: See HPI, Cough. denies: Short of breath, Wheezing Gastrointestinal: denies: Abdominal pain, Diarrhea, Nausea, Vomiting Genitourinary: No symptoms reported Female Genitourinary: No symptoms reported Musculoskeletal: No symptoms reported Skin: No symptoms reported Hematologic/Lymphatic: No symptoms reported Neurological/Psychological: No symptoms reported -: Yes All other systems reviewed and negative Physical Exam - Vital signs Vitals: Temp Pulse Resp BP Pulse Ox 97.8 F 80 18 123/84 98 07/21/19 07:24 07/21/19 07:24 07/21/19 07:24 07/21/19 07:24 07/21/19 07:24 Interpretation: Normal - General General appearance: Appears well, Alert In distress: None - HEENT Head: Normocephalic, Atraumatic Eyes: Normal Pupils: PERRL Ears: Normal External canal: Normal Tympanic membrane: Normal. No: Bulging, Hemotympanum, Injected, Perforation, Purulent effusion Sinus: Normal. No: Swelling, Tenderness Nasal: Normal. No: Epistaxis, Purulent discharge Mouth/Lips: Normal. No: Angioedema Mucous membranes: Normal Pharynx: Erythema - Mild posterior oropharyngeal erythema without exudates. There is no evidence for Nixon's angina. There is no drooling, no voice change, no evidence for peritonsillar abscess.. No: Exudate, Peritonsillar abscess, Post nasal drainage, Retropharyngeal abscess, Tonsillar hypertrophy, Uvular edema, Potential airway comprom. Neck: Normal, Supple. No: Lymphadenopathy, Meningismus - Respiratory Respiratory status: No respiratory distress Chest status: Nontender. No: Accessory muscle use Breath sounds: Nonproductive cough. No: Rales, Rhonchi, Wheezing Chest palpation: Normal - Cardiovascular Rhythm: Regular Heart sounds: Normal auscultation Murmur: No - Abdominal Inspection: Normal Distension: No distension Bowel sounds: Normal Tenderness: Nontender Organomegaly: No organomegaly - Back Back: Normal, Nontender - Neurological Neuro grossly intact: Yes Cognition: Normal Orientation: AAOx4 [place] Coma Scale Eye Opening: Spontaneous [place] Coma Scale Verbal: Oriented [place] Coma Scale Motor: Obeys Commands [place] Coma Scale Total: 15 Speech: Normal Cranial nerves: Normal Cerebellar coordination: Normal Motor strength normal: LUE, RUE, LLE, RLE Additional motor exam normals: Equal coagulation operator. No: Pronator drift Sensory: Normal - Psychological Associated symptoms: Normal affect, Normal mood - Skin Skin Temperature: Warm Skin Moisture: Dry Skin Color: Normal Course - Re-evaluation Re-evalutation: 07/21/19 Impression: Fl[place] symptoms. Negative for strep and for pneumonia. Flu a and B are negative but likely this is of version of the flu. She is out of range for Tamiflu. Will send home with symptomatic relief. Encourage smoking cessation. She agrees with the plan. Encouraged to return if she is worse. - Vital Signs Vital signs: Temp Pulse Resp BP Pulse Ox 98.8 F 83 16 128/74 H 99 07/21/19 10:40 07/21/19 10:40 07/21/19 10:40 07/21/19 10:40 07/21/19 10:40 - Diagnostic Test Radiology reviewed: Image reviewed, Reports reviewed Discharge - Discharge Clinical Impression: Flu-like symptoms, Generalized body aches, Cough, Sore throat Fever Qualifiers: Fever type: unspecified Qualified Code(s): R50.9 - Fever, unspecified Condition: Stable Disposition: HOME, SELF-CARE Instructions: Influenza ([facility]) Additional Instructions: Push fluids. Rest in the bed. Take medicines as prescribed. May alternate between Tylenol and Motrin for treatment of fevers and body aches. Return if any worsening symptoms. Primary care follow-up. Stop smoking Prescriptions: Ibuprofen [Motrin 800 mg Tablet] 800 mg PO Q8H PRN #30 tab PRN Reason: Promethazine/Dextromethorphan [Promethazine-Dm Syrup] 5 ml PO Q6H #120 ml Methocarbamol [Robaxin 500 mg Tablet] 500 mg PO QID #20 tablet Forms: Smoking Cessation Education, Return to Work Referrals: [facility] [Outside] - Follow up in 1 week
--- NOTE | 2019-07-21 10:23 | RADIOLOGY REPORT (SQ) ---
EXAM DESCRIPTION: CHEST 2 VIEWS COMPLETED DATE/TIME: 07/21/2019 10:11 am REASON FOR STUDY: cough, fever COMPARISON: None. EXAM PARAMETERS: NUMBER OF VIEWS: two views TECHNIQUE: Digital Frontal and Lateral radiographic views of the chest acquired. RADIATION DOSE: NA LIMITATIONS: none FINDINGS: LUNGS AND PLEURA: No opacities, masses or pneumothorax. No pleural effusion. MEDIASTINUM AND HILAR STRUCTURES: No masses or contour abnormalities. HEART AND VASCULAR STRUCTURES: Heart normal size. No evidence for failure. BONES: No acute findings. HARDWARE: None in the chest. Cholecystectomy clips. OTHER: No other significant finding. IMPRESSION: NO ACUTE RADIOGRAPHIC FINDING IN THE CHEST. TECHNICAL DOCUMENTATION: JOB ID: [id number] 2010 [employer]- All Rights Reserved Reading location - IP/workstation name: [email or web address]
[2019-07-21 10:42] VITALS: BP 128/74
== END 2019-07-21 10:40 | disposition home or self-care (01) ==
LOC: ER 06:39
DX: J02.9 Acute pharyngitis, unspecified (principal); R50.9 Fever, unspecified; R05 Cough; M79.10 Myalgia, unspecified site; F17.200 Nicotine dependence, unspecified, uncomplicated; Z91.040 Latex allergy status; Z88.0 Allergy status to penicillin; Z90.49 Acquired absence of other specified parts of digestive tract
CPT/HCPCS: 71046; 87070; 87804; 87880

== ENCOUNTER 2019-08-16 12:04 | Emergency (ER) | payer SELFPAY ==
--- NOTE | 2019-08-16 12:19 | ER Document Report ---
ED Respiratory Problem - General Chief Complaint: Shortness Of Breath Stated Complaint: DIFFICULTY BREATHING Time Seen by Provider: 08/16/19 12:11 Mode of Arrival: Ambulatory Information source: Patient Notes: 33-year-old female presents to ED for complaint of shortness of breath. She was diagnosed with the flu on at the urgent care. She states she they told her she had influenza A. She states she became very short of breath today. She states she usually smokes about a pack a day and is only been smoking 1 or 2 cigarettes a day. Is alert oriented respirations regular nonlabored. She is lungs are clear to auscultation. TRAVEL OUTSIDE OF THE [place] IN LAST 30 DAYS: No - HPI Patient complains to provider of: Asthma, Cough, Other - Influenza Onset: Last week Duration: Continuous Initiating Event: Other - Influenza Quality of pain: No pain Severity: None Pain Level: Denies Context: Hx asthma, Smoker Cough: Nonproductive Sputum amount: None Associated symptoms: Cough, Short of breath, Other Similar symptoms previously: Yes Recently seen / treated by doctor: Yes - Related Data Allergies/Adverse Reactions: latex Allergy (Verified 07/21/19 07:32) Penicillins Allergy (Verified 07/21/19 07:32) Home Medications: Albuterol PRN Past Medical History - General Information source: Patient - Social History Smoking Status: Current Every Day Smoker Cigarette use (# per day): Yes - Pack per day Chew tobacco use (# tins/day): No Smoking Education Provided: Yes - 4 minutes Frequency of alcohol use: Social Drug Abuse: None Occupation: [employer] Lives with: Spouse/Significant other Family History: Reviewed & Not Pertinent Patient has suicidal ideation: No Patient has homicidal ideation: No - Past Medical History Cardiac Medical History: Reports: None EENT Medical History: Reports: None Neurological Medical History: Reports: None Endocrine Medical History: Reports: None Renal/ Medical History: Reports: None Malignancy Medical History: Reports: None GI Medical History: Reports: Hx Gastroesophageal Reflux Disease, Hx Ulcer Musculoskeletal Medical History: Reports None Skin Medical History: Reports None Psychiatric Medical History: Reports: None Traumatic Medical History: Reports: None Infectious Medical History: Reports: None Past Surgical History: Reports: Hx Cholecystectomy - Immunizations Immunizations up to date: Yes Review of Systems - Review of Systems Constitutional: No symptoms reported EENT: No symptoms reported Cardiovascular: No symptoms reported Respiratory: Cough, Short of breath Gastrointestinal: No symptoms reported Genitourinary: No symptoms reported Female Genitourinary: No symptoms reported Musculoskeletal: No symptoms reported Skin: No symptoms reported Hematologic/Lymphatic: No symptoms reported Neurological/Psychological: No symptoms reported -: Yes All other systems reviewed and negative Physical Exam - Vital signs Vitals: Temp Pulse Resp BP Pulse Ox 97.6 F 90 22 H 134/96 H 100 08/16/19 12:09 08/16/19 12:08/16/19 12:08/16/19 12:08/16/19 12:09 Interpretation: Normal. No: Hypertensive - Blood pressure 128/65 - General General appearance: Appears well, Alert - HEENT Head: Normocephalic, Atraumatic Eyes: Normal Pupils: PERRL - Respiratory Respiratory status: No respiratory distress Chest status: Nontender Breath sounds: Nonproductive cough. No: Rales, Rhonchi, Stridor, Wheezing Chest palpation: Normal - Cardiovascular Rhythm: Regular Heart sounds: Normal auscultation Murmur: No - Abdominal Inspection: Normal Distension: No distension Bowel sounds: Normal Tenderness: Nontender Organomegaly: No organomegaly - Back Back: Normal, Nontender - Extremities General upper extremity: Normal inspection, Nontender, Normal color, Normal ROM, Normal temperature General lower extremity: Normal inspection, Nontender, Normal color, Normal ROM, Normal temperature, Normal weight bearing. No: Merlene's sign - Neurological Neuro grossly intact: Yes Cognition: Normal Orientation: AAOx4 [place] Coma Scale Eye Opening: Spontaneous [place] Coma Scale Verbal: Oriented [place] Coma Scale Motor: Obeys Commands [place] Coma Scale Total: 15 Speech: Normal Motor strength normal: LUE, RUE, LLE, RLE Sensory: Normal - Psychological Associated symptoms: Normal affect, Normal mood - Skin Skin Temperature: Warm Skin Moisture: Dry Skin Color: Normal Course - Re-evaluation Re-evalutation: 08/16/19 22:01 Chest x-ray was negative for any acute processes. Patient was discharged home with instructions for upper respiratory infection. Patient verbalized understanding and agreement with treatment plan and patient was discharged home. - Vital Signs Vital signs: Temp Pulse Resp BP Pulse Ox 97.6 F 74 22 H 126/65 H 98 08/16/19 12:09 08/16/19 13:06 08/16/19 12:09 08/16/19 12:31 08/16/19 13:06 - Diagnostic Test Radiology reviewed: Image reviewed, Reports reviewed Discharge - Discharge Clinical Impression: Viral respiratory illness Condition: Stable Disposition: HOME, SELF-CARE Additional Instructions: You were seen today for viral respiratory illness. Chest x-ray is clear it does not show any abnormalities at this time. You have been recommended treatment with Claritin 10 mg Sudafed 30 mg and Mucinex 600 mg. These are all [id number] medications for cough cold congestion. You do need to call the go to the pharmacist to get the Sudafed from behind the counter please get a little red pills they are more effective. You could also use Flonase which is [id number]-[id number] 1 spray each nostril twice a day. You could also use salt soda solution gargles. These will help to remove the drainage from the back your throat. Chloraseptic spray was [id number] that will also help with your sore throat. Salt and soda solution gargle 1 quart of water 1 tablespoon of salt 1 teaspoon of baking soda Mixed 3 ingredients together and boil for 1 minute Placed in a covered quart jar Use 1/2 ounce of cold solution to gargle 3 times a day Follow-Up Care Although no definite follow-up visit has been scheduled for you, you should return if there is unexpected worsening or a significant change in your symptoms. Forms: Smoking Cessation Education, Return to Work
[2019-08-16 12:32] VITALS: BP 126/65
--- NOTE | 2019-08-16 12:52 | RADIOLOGY REPORT (SQ) ---
EXAM DESCRIPTION: CHEST 2 VIEWS COMPLETED DATE/TIME: 08/16/2019 12:36 pm REASON FOR STUDY: Cough congestion short of breath COMPARISON: None. EXAM PARAMETERS: NUMBER OF VIEWS: two views TECHNIQUE: Digital Frontal and Lateral radiographic views of the chest acquired. RADIATION DOSE: NA LIMITATIONS: none FINDINGS: LUNGS AND PLEURA: No opacities, masses or pneumothorax. No pleural effusion. MEDIASTINUM AND HILAR STRUCTURES: No masses or contour abnormalities. HEART AND VASCULAR STRUCTURES: Heart normal size. No evidence for failure. BONES: No acute findings. HARDWARE: Cholecystectomy clips. OTHER: No other significant finding. IMPRESSION: No focal airspace disease or other evidence of acute intrathoracic process. TECHNICAL DOCUMENTATION: JOB ID: [id number] [employer]- All Rights Reserved Reading location - IP/workstation name: [email or web address]
== END 2019-08-16 13:06 | disposition home or self-care (01) ==
LOC: ER 12:04
DX: J06.9 Acute upper respiratory infection, unspecified (principal); R06.02 Shortness of breath; F17.210 Nicotine dependence, cigarettes, uncomplicated; Z90.49 Acquired absence of other specified parts of digestive tract
CPT/HCPCS: 71046; 99283; 99406

== ENCOUNTER 2019-08-22 13:40 | Emergency (ER) | payer SELFPAY ==
[2019-08-22 13:44] VITALS: BP 136/89
--- NOTE | 2019-08-22 14:12 | ER Document Report ---
HPI - HPI Patient complains to provider of: Right great toenail injury Time Seen by Provider: 08/22/19 14:02 Onset: Yesterday Onset/Duration: Sudden Quality of pain: Achy Pain Level: 3 Context: 23-year-old female presents emergency department with complaints of pain to her right great toe. Reports she bumped the toe the other day and lifted up the nail. She reports this morning after getting out of the shower she noticed pus/discharge. She reports she walked went to work worked all day at the [employer] came here before because she was worried about infection. Denies fever vomiting diarrhea. Past medical history of injury to the toe. Associated Symptoms: None Exacerbated by: Walking Relieved by: Denies Similar symptoms previously: No Recently seen / treated by doctor: No - REPRODUCTIVE Reproductive: REPORTS: : - DERM Skin Color: Normal Past Medical History - General Information source: Patient - Social History Smoking Status: Current Every Day Smoker Cigarette use (# per day): Yes Occupation: [employer] Family History: Reviewed & Not Pertinent Patient has suicidal ideation: No Patient has homicidal ideation: No GI Medical History: Reports: Hx Gastroesophageal Reflux Disease, Hx Ulcer Past Surgical History: Reports: Hx Cholecystectomy - Immunizations Immunizations up to date: Yes Vertical Provider Document - CONSTITUTIONAL Agree With Documented VS: Yes Exam Limitations: No Limitations General Appearance: WD/WN, No Apparent Distress - INFECTION CONTROL TRAVEL OUTSIDE OF THE [place] IN LAST 30 DAYS: No - HEENT HEENT: Atraumatic, Normocephalic - NECK Neck: Supple - RESPIRATORY Respiratory: No Respiratory Distress - CARDIOVASCULAR Cardiovascular: Regular Rate - MUSCULOSKELETAL/EXTREMETIES Musculoskeletal/Extremeties: MAEW, FROM, Tender - right great toe/toenail ttp, toenail is secure, does not lift up. No erythema no ecchymosis no swelling no warmth cap refill less than 2 seconds. No discharge noted - NEURO Level of Consciousness: Awake, Alert, Appropriate Motor/Sensory: No Motor Deficit - DERM Integumentary: Warm, Dry Course - Re-evaluation Re-evalutation: 08/22/19 14:11 Patient presents with right great toe pain. Reports great toenail was loose. I attempted to raise the toenail and it is very secure. No erythema no swelling no pustule no warmth. Patient was instructed to keep the toe well-padded protected. She was instructed to monitor for signs of infection and to return for concerns. - Vital Signs Vital signs: Temp Pulse Resp BP Pulse Ox 97.8 F 78 16 136/89 H 99 08/22/19 13:43 08/22/19 13:43 08/22/19 13:43 08/22/19 13:43 08/22/19 13:43 Discharge - Discharge Clinical Impression: right great toenail injury Condition: Stable Disposition: HOME, SELF-CARE Additional Instructions: *You have been evaluated for right great toenail injury *Protect your toe, monitor this area for signs of infection such as redness swelling warmth discharge *Wear good supporting shoes *Follow up with your primary care provider or return here for concerns Take ibuprofen as indicated for pain *Return to ED for worsening condition, changes, needs Monitor your blood pressure. Your blood pressure was elevated today. This may be because you were anxious, in pain or because you need medication. It is important to follow up with your primary care provider for full evaluation. Forms: Elevated Blood Pressure
== END 2019-08-22 14:14 | disposition home or self-care (01) ==
LOC: ER 13:40
DX: S99.821A Other specified injuries of right foot, initial encounter (principal); M79.674 Pain in right toe(s); W22.09XA Striking against other stationary object, initial encounter; Y93.E1 Activity, personal bathing and showering; F17.210 Nicotine dependence, cigarettes, uncomplicated; Z90.49 Acquired absence of other specified parts of digestive tract
CPT/HCPCS: 99283

== ENCOUNTER → 2019-08-30 | Outpatient (CLI) | payer SELFPAY ==
[2019-08-30 14:57] LABS: A TYPE INFLUENZA AG NEGATIVE (NEGATIVE); B INFLUENZA AG NEGATIVE (NEGATIVE)
== END ==
LOC: RDC 13:45
PROVIDERS: ATTEND Registered Nurse
DX: Z20.828 Contact with and (suspected) exposure to other viral communicable diseases (principal)
CPT/HCPCS: 36415; 87070; 87635; 87804; 87880

== ENCOUNTER 2019-09-12 18:27 | Emergency (ER) | payer SELFPAY ==
--- NOTE | 2019-09-12 18:51 | ER Document Report ---
ED Medical Screen (RME) - General Chief Complaint: Abdominal Pain Stated Complaint: ABDOMINAL PAIN, VAGINAL BLEEDING Time Seen by Provider: 09/12/19 18:43 Notes: Patient is a 23-year-old female G2, P0 who presents the emergency department with vaginal bleeding. Patient states that she is about 8 weeks . States that her last menstrual cycle was July 13. Patient has history of miscarriage in the past. Patient states that her bleeding started today. She denies any large clots. Exam: Tender mid lower abdomen. Exam limited due to patient in chair. I have greeted and performed a rapid initial assessment of this patient. A comprehensive ED assessment and evaluation of the patient, analysis of test results and completion of medical decision making process will be conducted by an additional ED providers. TRAVEL OUTSIDE OF THE [place] IN LAST 30 DAYS: No - Related Data Allergies/Adverse Reactions: latex Allergy (Verified 09/12/19 18:34) Penicillins Allergy (Verified 09/12/19 18:34) Past Medical History - Social History Chew tobacco use (# tins/day): No Frequency of alcohol use: None Drug Abuse: None Renal/ Medical History: Denies: Hx Peritoneal Dialysis GI Medical History: Reports: Hx Gastroesophageal Reflux Disease, Hx Ulcer Past Surgical History: Reports: Hx Cholecystectomy - Immunizations Immunizations up to date: Yes Physical Exam - Vital signs Vitals: Temp Pulse Resp BP Pulse Ox 98.0 F 87 20 131/70 H 98 09/12/19 18:30 09/12/19 18:30 09/12/19 18:30 09/12/19 18:30 09/12/19 18:30 Course - Vital Signs Vital signs: Temp Pulse Resp BP Pulse Ox 98.0 F 87 20 131/70 H 98 09/12/19 18:30 09/12/19 18:30 09/12/19 18:30 09/12/19 18:30 09/12/19 18:30
[2019-09-12 19:12] LABS: ABSOLUTE BASOPHILS # (AUTO) 0.1 10^3/uL (0.0-0.2); ABSOLUTE EOSINOPHILS # (AUTO) 0.4 10^3/uL (0.0-0.6); ABSOLUTE LYMPHOCYTES (AUTO) 3.6 10^3/uL (0.5-4.7); ABSOLUTE MONOCYTES (AUTO) 0.5 10^3/uL (0.1-1.4); ABSOLUTE NEUT (AUTO) 7.8 10^3/uL (1.7-8.2); BASOPHILS % (AUTO) 0.6 % (0-2); EOSINOPHILS % (AUTO) 3.1 % (0-6); HEMATOCRIT 39.3 % (36.0-47.0); HEMOGLOBIN 13.5 g/dL (12.0-15.5); LYMPHOCYTES % (AUTO) 29.3 % (13-45); MEAN CORPUSCULAR HEMOGLOBIN 28.4 pg (27.0-33.4); MEAN CORPUSCULAR HGB CONC 34.3 g/dL (32.0-36.0); MEAN CORPUSCULAR VOLUME 83 fl (80-97); MONOCYTES % (AUTO) 4.1 % (3-13); PLATELET COUNT 298 10^3/uL (150-450); RED BLOOD COUNT 4.74 10^6/uL (3.72-5.28); RED CELL DISTRIBUTION WIDTH 14.3 % (11.5-14.0); SEGMENTED NEUTROPHILS % (AUTO) 62.9 % (42-78); TOTAL CELLS COUNTED % (AUTO) 100 %; WHITE BLOOD COUNT 12.4 10^3/uL (4.0-10.5)
[2019-09-12 19:14] LABS: APPEARANCE,URINE CLEAR; BILIRUBIN,URINE NEGATIVE (NEGATIVE); COLOR,URINE YELLOW; GLUCOSE, URINE NEGATIVE (NEGATIVE); KETONES,URINE NEGATIVE (NEGATIVE); LEUKOCYTE ESTERASE,URINE NEGATIVE (NEGATIVE); NITRITE,URINE NEGATIVE (NEGATIVE); PROTEIN,URINE NEGATIVE (NEGATIVE); URINE SPECIFIC GRAVITY 1.016; UROBILINOGEN,URINE NEGATIVE mg/dL (<2.0)
[2019-09-12 19:32] LABS: ALBUMIN 3.8 g/dL (3.5-5.0); ALKALINE PHOSPHATASE 48 U/L (38-126); ANION GAP 6 (5-19); ASPARTATE AMINO TRANSFERASE 18 U/L (14-36); BILIRUBIN,TOTAL 0.1 mg/dL (0.2-1.3); BLOOD UREA NITROGEN 15 mg/dL (7-20); CALCIUM 9.4 mg/dL (8.4-10.2); CARBON DIOXIDE 24 mmol/L (22-30); CHLORIDE 106 mmol/L (98-107); GLUCOSE 106 mg/dL (75-110); TOTAL PROTEIN 6.8 g/dL (6.3-8.2)
--- NOTE | 2019-09-12 19:34 | ER Document Report ---
ED General - General Chief Complaint: Abdominal Pain Stated Complaint: ABDOMINAL PAIN, VAGINAL BLEEDING Time Seen by Provider: 09/12/19 18:43 Notes: 23-year-old female presents the emergency department stating that she is 9 weeks , last menstrual period was 07/13/2027. States that she started having some light bleeding earlier today after sex and now she is having heavier dark red bleeding with some lower abdominal cramping. Patient is a G2, P0, previously had a spontaneous at 6 weeks and is concerned she may be having another miscarriage. TRAVEL OUTSIDE OF THE [place] IN LAST 30 DAYS: No - Related Data Allergies/Adverse Reactions: latex Allergy (Verified 09/12/19 18:34) Penicillins Allergy (Verified 09/12/19 18:34) Past Medical History - General Information source: Patient - Social History Smoking Status: Never Smoker Chew tobacco use (# tins/day): No Frequency of alcohol use: None Drug Abuse: None. denies: Marijuana - Quit smoking marijuana when she found out she was . Family History: Reviewed & Not Pertinent Patient has suicidal ideation: No Patient has homicidal ideation: No Renal/ Medical History: Denies: Hx Peritoneal Dialysis GI Medical History: Reports: Hx Gastroesophageal Reflux Disease, Hx Ulcer Past Surgical History: Reports: Hx Cholecystectomy - Immunizations Immunizations up to date: Yes Review of Systems - Review of Systems Constitutional: No symptoms reported Female Genitourinary: See HPI, , Vaginal bleeding -: Yes All other systems reviewed and negative Physical Exam - Vital signs Vitals: Temp Pulse Resp BP Pulse Ox 98.0 F 87 20 131/70 H 98 09/12/19 18:30 09/12/19 18:30 09/12/19 18:30 09/12/19 18:30 09/12/19 18:30 Interpretation: Normal - Notes Notes: GENERAL: Alert, interacts well. No acute distress. HEAD: Normocephalic, atraumatic EYES: Pupils equal, round and reactive to light, extraocular movements intact. ENT: Oral mucosa moist, tongue midline. NECK: Full range of motion, supple, trachea midline. LUNGS: Clear to auscultation bilaterally, no wheezes, rales or rhonchi, no respiratory distress. HEART: Regular rate and rhythm, no murmurs, gallops, rubs. ABDOMEN: Soft, mild lower abdominal tenderness palpation, nondistended, bowel sounds present in all 4 quadrants. EXTREMITIES: Moves all 4 extremities spontaneously, no edema, radial and dorsalis pedis pulses 2/4 bilaterally. No cyanosis. NEUROLOGICAL: Alert and oriented x3, normal speech. PSYCH: Normal mood, normal affect. SKIN: Warm, Dry, normal turgor, no rashes or lesions noted. Course - Re-evaluation Re-evalutation: 09/12/19 21:21 CBC shows slight leukocytosis of 12.4, CMP grossly unremarkable, quantitative beta-hCG is 4871, urinalysis unremarkable, she is a positive so RhoGam is not indicated. Transvaginal US 09/12/19 18:50 IMPRESSION: Irregular shaped gestational sac is present in the lower uterine segment. No pole. There are two irregular cystic structures within which may represent either two yolk sacs versus a single very irregular yolk sac. No pole. No cardiac activity. Overall viability is indeterminate. Discussed with patient that she may be having a miscarriage but we cannot tell at this time. Recommended she return in 3 days to have her quant hCG repeated. Patient is also to return if she bleeds through more than 1 pad per hour for more than 3 hours in a row. Patient will be discharged to home. - Vital Signs Vital signs: Temp Pulse Resp BP Pulse Ox 98.0 F 87 20 131/70 H 98 09/12/19 18:30 09/12/19 18:30 09/12/19 18:30 09/12/19 18:30 09/12/19 18:30 - Laboratory Result Diagrams: 09/12/19 18:40 09/12/19 18:40 Laboratory results interpreted by me: 09/12/19 09/12/19 18:40 18:40 WBC 12.4 H RDW 14.3 H Sodium 135.5 L Total Bilirubin 0.1 L Beta HCG, Quant 4871.90 H Discharge - Discharge Clinical Impression: Vaginal bleeding in patient at less than 20 weeks gestation Condition: Stable Disposition: HOME, SELF-CARE Additional Instructions: Threatened Miscarriage You have been evaluated for a possible miscarriage. Right now I do not know whether or not you are having a miscarriage. Currently on your ultrasound the baby is measuring 5-1/2 weeks gestational age but your last menstrual period indicates she should be approximately 6-1/2 weeks gestational age. It is possible that the baby stopped growing at 5-1/2 weeks. It is also possible that she simply ovulated significantly later than your last menstrual period would indicate. You need to have your hormone level (quantitative beta-hCG) repeated in 3 days. If you develop heavy vaginal bleeding that causes you to go through more than 1 pad per hour for more than 3 hours in a row please return to the emergency department. You should rest in bed until the symptoms have resolved. Do not douche or have sex for at least a week, or until OK'd by the doctor. Call the doctor or return for re-examination if there is an increase in bleeding or cramping, fever or foul-smelling discharge. Referrals: [facility] [Provider Group] - Follow up as needed
--- NOTE | 2019-09-12 20:37 | RADIOLOGY REPORT (SQ) ---
EXAM: First trimester pelvic ultrasound CLINICAL INDICATION: Bleeding COMPARISON: None. TECHNIQUE: First trimester OB ultrasound was performed. FINDINGS: Uterus: The uterus measures 8.4 x 3.5 x 4.4 cm. A gestational sac is identified in the lower uterine segment. The gestational sac is irregularly shaped. Gestational sac measures 1.4 x 0.8 x 0.8 cm. There are two cystic structures present within which may represent two separate yolk sacs or a very irregular lobulated yolk sac. No pole. No cardiac activity. The mean sac diameter is 1.0 cm which correlates with a gestational age of five weeks five days. This is three weeks delayed over the clinical age of eight weeks five days. The cervix measures 2.1 cm in length and contains a small amount of fluid. The endometrium is thickened measuring 15 mm. Ovaries and adnexa: The left ovary measures 2.9 x 1.7 x 1.6 cm and is morphologically normal with normal blood flow. The right ovary is not seen. No adnexal mass. No free fluid. IMPRESSION: Irregular shaped gestational sac is present in the lower uterine segment. No pole. There are two irregular cystic structures within which may represent either two yolk sacs versus a single very irregular yolk sac. No pole. No cardiac activity. Overall viability is indeterminate.
[2019-09-12 22:04] VITALS: BP 130/65
== END 2019-09-12 21:35 | disposition home or self-care (01) ==
LOC: ER 18:27
DX: O20.9 Hemorrhage in early pregnancy, unspecified (principal); Z3A.09 9 weeks gestation of pregnancy; Z91.040 Latex allergy status; Z88.0 Allergy status to penicillin; Z90.49 Acquired absence of other specified parts of digestive tract
CPT/HCPCS: 36415; 76817; 80053; 81001; 83690; 84702; 85025; 86900; 86901; 93976; 99284